=== PATIENT | female | born 1950 | race Caucasian/White ===

== ENCOUNTER 2016-02-25 23:19 | Inpatient (IN) | payer OTHER ==
[~2016-02-25] VITALS: Ht 175.3 cm; Wt 91.3 kg
[2016-02-26] VITALS (7 sets, daily range): BP systolic 96–123; BP diastolic 62–88
--- NOTE | 2016-02-26 02:26 | ED CLINICAL REPORT ---
Clinical Report - Physicians/Mid Levels [facility] [address] [place] [address] 02/25/2016 23:20 Patient: JESSICA CRAVEN Time Seen: 23:38. Arrived- By ambulance. Historian- patient and EMS personnel. HISTORY OF PRESENT ILLNESS Chief Complaint: med reaction. This started just prior to arrival and is now gone. (patient reports that she is not sure exactly why her called for an ambulance. She says that at times she has events where she becomes confused and disoriented. She is not sure if she had one of these events earlier or not. She says that she has a history of seizures but does not believe that she had one this evening. She has been on a fentanyl patch for many years. She does say that she has "felt poorly" for the past several days. She says that since yesterday she has had upper abdominal pain that radiates into the middle of her back.). REVIEW OF SYSTEMS No chills, fever, sweats, calf pain or chest pain. No cough, difficulty breathing, pedal edema, palpitations or black stools. No bloody stools, diarrhea, vomiting or urinary problems. The patient has had severe abdominal pain. The pain is described as located in the upper abdomen and radiating to the back and nausea. She has had constipation (chronically). All systems otherwise negative, except as recorded above. PAST HISTORY PCP - Ele. Problems: Chest Pain. Bipolar Disorder. Anxiety Reaction. Seizure. Hypothyroidism. Hypertension. Contusion. Alcoholism. Alcohol Intoxication. Narcotic Dependence. Suicidal Ideation. Mental Illness. Depression. UTI - Urinary Tract Infection. Cellulitis. Scoliosis. Seizure Disorder. Back Pain. Hematuria. Hyponatremia. Abdominal Pain. Hyperlipidemia. Atypical Chest Pain. Changed Mental Status. Drug Poisoning. Chronic Back Pain. Headache. Migraine Headache. Lifestyle / Substance Problems. Fibromyalgia. Additional Surgeries: Rt knee. Medications: Triamcinolone Acetonide External (Cream 0.1 %), 2x a day as needed. Venlafaxine HCl ER Oral (Tablet Extended Release 24 Hour 75 mg) 1 tablet, TID. Verapamil HCl Oral (Tablet Extended Release 240 mg), daily. Vitamin D3 Oral (Tablet 5000 unit) 1 tablet, daily. Zofran Oral (RX 02/27/13). FentaNYL Transdermal 75 mcg/hr, every 72 hours. Furosemide Oral (Tablet 20 mg) 1 tablet, daily. Imitrex Oral 50 mg, PRN. LevETIRAcetam Oral (Tablet 1000 mg) 1-1/2 tablets, daily (and at hs take 1 tablet ). Levothyroxine Sodium Oral 150 mcg, daily. LORazepam Oral (Tablet 1 mg) 1 tablet, 3x a day as needed. Nitroglycerin Translingual (Solution 0.4 mg/spray), PRN. Omeprazole Oral 20 mg, daily. Pravastatin Sodium Oral 20 mg, daily. Promethazine HCl Oral 25 mg, 2x a day as needed. SEROquel Oral (Tablet 100 mg) 1 tablet, 3x a day. Stool Softener Oral. Allergies: No Known Drug Allergy. SOCIAL HISTORY Current every day light tobacco smoker (cigarette)- less than 1/2 a pack per day. Alcohol use. (she says that she has been a very heavy drinker up until about 2 months ago. She was drinking large amounts every day. Since then she has tried not to drink however does report that 2 days ago she had a beer.). Residence: [place] she lives with spouse. FAMILY HISTORY Denies family medical history. ADDITIONAL NOTES The nursing notes have been reviewed. PHYSICAL EXAM Vital Signs: 02/25/2016 23:29 BP: 110/91. HR: 110. RR: 16. O2 saturation: 95%. Temp: 99.3 F. Pain level now: 07/25. Have been reviewed. Appearance: Alert. No acute distress. Eyes: Pupils equal, round and reactive to light. ENT: Pharynx normal. Neck: Normal inspection. Neck supple. CVS: Normal heart rate and rhythm. Heart sounds normal. Respiratory: No respiratory distress. Decreased air movement. Abdomen: No visible injury. Soft and nontender. Bowel sounds normal. No organomegaly. No mass. Back: Normal inspection. Skin: Skin warm and dry. Normal skin color. No rash. Normal skin turgor. Extremities: Extremities exhibit normal ROM. No calf tenderness. No lower extremity edema. LABS, X-RAYS, AND EKG EKG: Rate: 99. LVH. Non-specific ST segment / T wave abnormalities. Prolonged QT (412 ms). EKG unchanged when compared with prior EKG. (no significant changes from September 30, 2015). Chest X-ray: No acute disease. The X-rays were independently viewed by me. Abdominal CT: findings consistent with acute pancreatitis. Cannot evaluate for pancreas necrosis or vascular complication unenhanced and enhanced exam no loculated fluid collection at this time. Fluid tracking along the right greater than left perirenal fascia. Mild fluid in the right pericolic gutter and mild to moderate free fluid in the pelvis mildly prominent distended gallbladder. Borderline common duct no obvious filling defect. fatty liver. Upper limits of normal heart size. coronary artery calcifications and a fibroid uterus. Degenerative spine changes. The study was interpreted by the radiologist and contemporaneously by me. Laboratory Tests: UA-Culture if indicated: (ASIYA: 02/26/2016 00:28) ( MsgRcvd 02/26/2016 00:51) Final results Test Result Flag Units (Reference) URINE COLOR YELLOW URINE APPEARANCE CLEAR URINE GLUCOSE NEGATIVE (NEGATIVE) URINE BILIRUBIN NEGATIVE (NEGATIVE) URINE KETONE NEGATIVE (NEGATIVE) URINE SPECIFIC GRAVITY 1.015 (1.010-1.030) URINE PH 8.0 (5.0-8.0) URINE PROTEIN 1+ (NEGATIVE) URINE UROBILINOGEN 0.2 EU/dL (0.2-1.0) URINE NITRITE NEGATIVE (NEGATIVE) URINE BLOOD NEGATIVE (NEGATIVE) URINE LEUK ESTERASE NEGATIVE (NEGATIVE) URINE RBC 0-1 rbc/hpf (0-1) URINE WBC 0-1 wbc/hpf (0-1) URINE EPITHELIAL CELLS 0-1 EPI/hpf (0-5) URINE BACTERIA NONE SEEN (NONE SEEN) URINE COMMENT CULT NOT INDICATED URINE CULTURES ARE SET-UP BASED ON THE FOLLOWING CRITERIA:POSITIVE NITRITEPOSITIVE LEUKOCYTE ESTERASEGREATER THAN 10 WHITE BLOOD CELLSMODERATE (2+) OR GREATER BACTERIA CBC w Diff: (ASIYA: 02/26/2016 00:28) ( MsgRcvd 02/26/2016 00:45) Final results Test Result Flag Units (Reference) WHITE BLOOD COUNT 10.4 K/uL (4.5-11.5) RED BLOOD COUNT 4.46 M/uL (4.00-5.20) HEMOGLOBIN 13.7 gm/dL (12.0-16.0) HEMATOCRIT 41.5 % (36.0-46.0) MEAN CELL VOLUME 93 fL (80-100) MEAN CORPUSCULAR HGB 31 pg (26-34) MEAN CORPUSCULAR HGB CONC 33 g/dL (31-37) RED CELL DISTRIBUTION WIDTH 14.8 % (11.6-14.8) PLATELET COUNT 212 K/uL (150-400) NEUTROPHIL % 80.3 H % (50-75) LYMPH % 12.9 L % (25-40) MONO % 5.9 % (3-14) EOSINOPHIL % 0.4 % (0-4) BASOPHIL % 0.5 % (0-2) Ethyl Alcohol: (ASIYA: 02/26/2016 00:28) ( KsgRcvd 02/26/2016 01:40) Final results Test Result Flag Units (Reference) ETHYL ALCOHOL <3 L mg/dL (3-10) Urine Drug Screen: (ASIYA: 02/26/2016 00:28) ( KsgRcvd 02/26/2016 00:58) Final results Test Result Flag Units (Reference) AMPHETAMINE/METHAMPHETAMINE NEGATIVE (NEGATIVE) BARBITURATE NEGATIVE (NEGATIVE) BENZODIAZEPINE NEGATIVE (NEGATIVE) CANNABINOID POSITIVE H (NEGATIVE) COCAINE NEGATIVE (NEGATIVE) ECSTASY NEGATIVE (NEGATIVE) METHADONE NEGATIVE (NEGATIVE) OPIATE POSITIVE H (NEGATIVE) The urine drug screen is a qualitative screening test fordrug overdose and abuse. All screen results should beconsidered as presumptive.Drugs screened for are as follows:BenzodiazepinesCocaineAmphetamines/MetamphetaminesTHC (Tetrahydrocannabinol)OpiatesBarbituratesEcstasyMethadonePositive results are unconfirmed. For confirmation, notifythe lab for the specimen to be sent to the reference lab.All confirmations must be performed by a differentmethodology.The ingestion of natural herbal and plant productscontaining Ephedra/Ephedra metabolites can produce in urineone or more substances capable of cross reacting withamphetamine/methamphetamine immunoassays. These testsprovide a preliminary result only. A more specificalternative chemical method must be used to obtain aconfirmed analytical result. CMP: (ASIYA: 02/26/2016 00:28) ( MsgRcvd 02/26/2016 00:58) Final results Test Result Flag Units (Reference) GLUCOSE 133 H mg/dL (70-110) BUN 19 H mg/dL (7-18) CREATININE 1.9 H mg/dL (0.6-1.3) Estimated GFR 28.38 mL/min Estimated GFR- 34.39 mL/min Note: Persistent reduction over 3 months in eGFR<60 mL/min/1.73 m2 defines CKD. Patients with eGFR values>=60 mL/min/1.73 m2 may also have CKD if evidence ofpersistent proteinuria. Additional information may be foundat www.kidney.org. SODIUM 133 L mmol/L (136-145) POTASSIUM 3.6 mmol/L (3.5-5.1) CHLORIDE 96 L mmol/L (98-107) CARBON DIOXIDE 27 mmol/L (21-32) CALCIUM 7.3 L mg/dL (8.5-10.1) TOTAL PROTEIN 7.2 g/dL (6.4-8.2) ALBUMIN 3.6 g/dL (3.3-5.0) BILIRUBIN, TOTAL 0.5 mg/dL (0.0-1.0) ALKALINE PHOSPHATASE 110 U/L (46-116) AST (SGOT) 36 U/L (15-37) ALT (SGPT) 37 U/L (12-78) LIPASE 2918 H U/L (73-393) AMYLASE 478 H U/L (25-115) CPK: (ASIYA: 02/26/2016 00:28) ( MsgRcvd 02/26/2016 01:02) Final results Test Result Flag Units (Reference) CPK 108 U/L (24-260) TROPONIN I <0.05 ng/mL (0.00-1.5) TROPONIN REFERENCE RANGE:<0.1 NEGATIVE0.1-1.5 INDETERMINANT>1.5 POSITIVE . PROGRESS AND PROCEDURES Course of Care: Patient is stable. Discussed case with on-call health care provider, (Grant). Reviewed test results and need for additional work-up. Agreed upon treatment plan, need for patient follow-up and decision to admit. Health care provider will see patient in hospital. Patient/family counseled. Old medical records reviewed. Disposition orders written (in [employer]). Disposition: Admitted. CLINICAL IMPRESSION Pancreatitis. Renal insufficiency. (Electronically signed by Fermin Zaman MD 02/26/2016 8:16)
--- NOTE | 2016-02-26 02:26 | ED NURSING NOTES ---
Clinical Report - Nurses [facility] [address] [place] [address] 02/25/2016 23:20 Patient: JESSICA CRAVEN TRIAGE Triage time 2329. Acuity: LEVEL 3. Alert. NIC COMA SCORE: [place] Coma Scale: 15- eyes open spontaneously (4); best verbal response- oriented x 4 (5); best motor response- obeys commands (6). --23:38 Manda Kramer R.N. 23:29 02/25/16. BP: 110/91. HR: 110. RR: 16. O2 saturation: 95% on room air. Temp: 99.3 F (oral). Pain level now: 07/25. Additional comments: chronic low back pain. --23:38 Manda Kramer R.N. Chief Complaint: DRUG OVERDOSE. 23:29. --04:01 Manda Kramer R.N. Weight: 91.6 kg stated. Height/Length: 67 inches Per Patient. BMI: 31.7. --23:28 Manda Kramer R.N. Medications FentaNYL Transdermal 75 mcg/hr, every 72 hours. Furosemide Oral (Tablet 20 mg) 1 tablet, daily. Imitrex Oral 50 mg, PRN. LevETIRAcetam Oral (Tablet 1000 mg) 1-1/2 tablets, daily (and at hs take 1 tablet ). Levothyroxine Sodium Oral 150 mcg, daily. LORazepam Oral (Tablet 1 mg) 1 tablet, 3x a day as needed. Nitroglycerin Translingual (Solution 0.4 mg/spray), PRN. Omeprazole Oral 20 mg, daily. Pravastatin Sodium Oral 20 mg, daily. Promethazine HCl Oral 25 mg, 2x a day as needed. SEROquel Oral (Tablet 100 mg) 1 tablet, 3x a day. Stool Softener Oral. --23:36 Manda Kramer R.N. Triamcinolone Acetonide External (Cream 0.1 %), 2x a day as needed. Venlafaxine HCl ER Oral (Tablet Extended Release 24 Hour 75 mg) 1 tablet, TID. Verapamil HCl Oral (Tablet Extended Release 240 mg), daily. Vitamin D3 Oral (Tablet 5000 unit) 1 tablet, daily. Zofran Oral (RX 02/27/13). --23:36 Manda Kramer R.N. Allergies No Known Drug Allergy. --23:36 Manda Kramer R.N. Medication/allergy information source: the patient. --23:38 Manda Kramer R.N. History Arrived by EMS. Historian: EMS. Unaccompanied. Primary physician (Ele). ( pt's spouse found her out of it tonight, placed new Fentanyl patch in the morning. pt states sometimes patches feel stronger than other.). This occurred just prior to arrival. Treatment FLITCH HANGER: IV fluid given (NS 300 mL bolus). ABUSE ASSESSMENT: No report of abuse. FALL RISK ASSESSMENT: Fall risk assessment completed. No fall risk identified. NUTRITIONAL RISK ASSESSMENT: The nutritional risk assessment revealed no deficiencies. FUNCTIONAL ASSESSMENT: Functional assessment: no impairments noted. LEARNING NEEDS ASSESSMENT: The learning needs assessment revealed no barriers. SKIN INTEGRITY ASSESSMENT: Skin integrity risk assessment completed. No skin integrity risk identified. --23:38 Manda Kramer R.N. PROBLEMS: Chest Pain. Bipolar Disorder. Anxiety Reaction. Hypothyroidism. Hypertension. Alcoholism. Narcotic Dependence. Suicidal Ideation. Mental Illness. Depression. Cellulitis. Scoliosis. Seizure Disorder. Back Pain. Hyperlipidemia. Atypical Chest Pain. Changed Mental Status. Headache. Migraine Headache. Fibromyalgia. --23:37 Manda Kramer R.N. ADDITIONAL SURGERIES: Rt knee. --23:37 Manda Kramer R.N. Interventions ID band on patient. To treatment room. --23:38 Manda Kramer R.N. 23:37 02/25/2016 Site #1 started via IV in the right antecubital space with an 18g angiocath (placed FLITCH HANGER). --23:37 Manda Kramer R.N. PHYSICAL ASSESSMENT late entry -00:00. To room via stretcher. GENERAL / NEURO / PSYCH: Alert. Oriented X 4. Appears in no acute distress. Patient appears calm and cooperative. Gag reflex present. Speech within normal limits. RESPIRATORY: Respirations not labored. CVS: Normal sinus rhythm noted. Capillary refill less than 2 seconds. GI / : Abdominal tenderness in the upper abdomen. Bowel sounds within normal limits. SKIN: Skin intact. Skin is warm and dry. Skin color is within normal limits. Affect appears within normal limits. --02:51 Manda Kramer R.N. correction to prior entry -assessment 01:00. --03:24 Manda Kramer R.N. NURSING PROGRESS NOTES family nurse practitioner, pulse oximeter and NIBP monitor placed on patient. Patient gowned. Two patient identifiers checked. Call light placed in reach. Side rails up x 2. Bed placed in lowest position. Brakes of bed on. Patient ready for evaluation. --23:39 Manda Kramer R.N. 00:17 02/26/16. BP: 104/76. HR: 100. RR: 14. O2 saturation: 94% on room air. --00:18 Manda Kramer R.N. pt used BSC, had BM. pt states she's unable to give urine specimen. --00:18 Manda Kramer R.N. <<STRICKEN ENTRY-- 00:05 02/26/2016 Started bag #1 1000 mL IV Fluids IV NS (Saline); at 999 mL/hr over 1 hour(s) via site #1 via IV pump. Allergies verified and confirmed 5 rights. IV patency established. IV site checked: no pain, redness, or swelling. IV flushed thoroughly pre- and post-medication administration. --00:19 Manda Kramer R.N. --END STRIKE>> Correction. --00:28 Manda Kramer R.N. 00:05 02/26/2016 Started bag #1 1000 IV Fluids IV NS (Saline); at 999 mL/hr over 30 minute(s) via site #1 via IV pump. Allergies verified and confirmed 5 rights. IV patency established. IV site checked: no pain, redness, or swelling. IV flushed thoroughly pre- and post-medication administration. --00:28 Manda Kramer R.N. 8 fr in/out catheterization. During procedure hand hygiene observed and sterile equipment and aseptic technique used. Return of yellow-colored clear urine. She tolerated procedure well (pt unable to give urine specimen. labeled in front of pt and sent to lab.). --00:37 Manda Kramer R.N. x-ray tech in room for portable chest x-ray. --00:38 Manda Kramer R.N. EKG time: (1250). EKG was ordered, performed by a tech and shown to the ED physician. --00:55 Magnus Valerie 00:50 02/26/2016 IV Fluids IV NS Discontinued: bag #1 infused. Total amount infused: 1000 ml mL. IV patency established. IV site checked: no pain, redness, or swelling. IV flushed thoroughly. (300 given FLITCH HANGER by EMS, gave pt 700 ml, MD aware of change.). --01:12 Manda Kramer R.N. 01:15 02/26/2016 Started bag #1 1000 mL IV Fluids IV NS (Saline); at 999 mL/hr over 1 hour(s) via site #1 via IV pump. Allergies verified and confirmed 5 rights. IV patency established. IV site checked: no pain, redness, or swelling. IV flushed thoroughly pre- and post-medication administration. --01:19 Manda Kramer R.N. Patient transported to CT by stretcher with tech. --01:19 Manda Kramer R.N. 01:00 02/26/16. BP: 108/81. HR: 100. RR: 16. O2 saturation: 96% on room air. --01:30 Manda Kramer R.N. Patient returned from CT by stretcher with tech. --01:30 Manda Kramer R.N. 02:35 02/26/16. BP: 149/100. HR: 95. RR: 18. O2 saturation: 96% on room air. Pain level now: 07/25. --02:35 Manda Kramer R.N. assisted pt back to room from bathroom. --02:35 Manda Kramer R.N. 03:23 02/26/2016 IV Fluids IV NS Bag Change: bag #2 infused. Total amount infused: 1000. STARTED bag #3 at 200 mL/hr via IV pump. IV patency established. IV site checked: no pain, redness, or swelling. IV flushed thoroughly. --03:26 Albin Patterson R.N. 03:24 02/26/2016 Zofran (Ondansetron HCl) IVP 4 mg given over 1 minute(s) via site #1. Allergies verified and confirmed 5 rights. IV patency established. IV site checked: no pain, redness, or swelling. IV flushed thoroughly pre- and post-medication administration. IVP given by RN. --03:33 Manda Kramer R.N. 03:32 02/26/2016 IV Fluids IV NS Continued: upon admission at the rate of 200 mL/hr. 960 ml mL remaining bag #3. IV patency established. IV site checked: no pain, redness, or swelling. IV flushed thoroughly. --03:32 Manda Kramer R.N. DISPOSITION / DISCHARGE Departure time: 323. Admitted to Acute Care (202). Transported via stretcher by [employer]. Report was given to a nurse via a phone call. Report included patient's care, treatment, medications, reviewed medication reconcilliation, and condition (including any recent changes or anticipated changes). All questions were answered. Report was acknowledged and care was transferred. (TELMA Grant). --03:31 Manda Kramer R.N. 03:24 02/26/16. BP: 119/82. HR: 97. RR: 18. O2 saturation: 94% on room air. Temp: 99 F. Pain level now: 07/25. --03:31 Manda Kramer R.N. Locked/Released at 02/26/2016 4:01 by Manda Kramer R.N.
--- NOTE | 2016-02-26 02:26 | ED ORDER SUMMARY ---
..... Patient: JESSICA CRAVEN OrderSheet [facility] VisitID: [id number] [place] [address] 65y, F Registration Date/Time: 02/25/2016 ORDER SHEET Weight: 91.6 kg (stated) Allergies: No Known Drug Allergy GENERAL ORDERS: CBC w Diff Urgent (23:42 02/25/2016 Eleni SCHAEFER) (Ack 0:23 CHagerty ER Aluminum Sheet Cutter) (1:13 CHategekimana) CMP Urgent (23:42 02/25/2016 Eleni SCHAEFER) (Ack 0:23 CHagerty ER Aluminum Sheet Cutter) (1:13 CHategekimana) UA-Culture if indicated Urgent (23:42 02/25/2016 Eleni SCHAEFER) (Ack 0:23 CHagdaren ER Aluminum Sheet Cutter) (1:13 CHategekimana) Amylase Urgent (23:42 02/25/2016 Eleni SCHAEFER) (Ack 0:23 CHagerty ER Aluminum Sheet Cutter) (1:13 CHategekimana) Lipase Urgent (23:42 02/25/2016 Eleni SCHAEFER) (Ack 0:23 CHagerty ER Aluminum Sheet Cutter) (1:13 CHategekimana) Urine Drug Screen Urgent (23:42 02/25/2016 Eleni SCHAEFER) (Ack 0:23 CHagerty ER Aluminum Sheet Cutter) (1:13 CHategekimana) Chest 1V Urgent (00:24 02/26/2016 Eleni SCHAEFER) (Ack 0:26 CHagdaren ER Aluminum Sheet Cutter) (0:41 Rena) CPK Urgent (00:24 02/26/2016 Eleni SCHAEFER) (Ack 0:26 CHagdaren ER Aluminum Sheet Cutter) (1:20 HKone R.N.) Troponin-I Urgent (00:24 02/26/2016 Eleni SCHAEFER) (Ack 0:26 CHagdaren ER Aluminum Sheet Cutter) (1:20 HKone R.N.) EKG - ER Stat (00:24 02/26/2016 Eleni SCHAEFER) (Ack 0:26 CHagerty ER Aluminum Sheet Cutter) (1:12 CHagerty ER Aluminum Sheet Cutter) CT Abd/Pel wo Cont Urgent (01:04 02/26/2016 Eleni SCHAEFER) (Ack 1:08 CHagerty ER Aluminum Sheet Cutter) (1:20 HKone R.N.) NPO (01:08 02/26/2016 Eleni SCHAEFER) (1:20 HKone R.N.) Ethyl Alcohol Urgent (01:29 02/26/2016 Eleni SCHAEFER) (1:31 CHagerty ER Aluminum Sheet Cutter) MEDICATION ORDERS: IV FLUIDS: IV NS : initial bolus 500 mL (1000 mL/hr), then 125 mL/hr for 4h (NOW); Urgent (23:41 02/25/2016 Eleni SCHAEFER) (Ack 23:49 HKone R.N.) (0:19 HKone R.N.) (Cancelled: Other1:08 Eleni SCHAEFER) IV Saline Lock (23:42 02/25/2016 Eleni SCHAEFER) (23:49 HKone R.N.) IV NS : initial bolus 1000 mL (1000 mL/hr), then 200 mL/hr for 4h (NOW); Urgent (:02/26/2016 Eleni SCHAEFER) (Ack 1:12 HKone R.N.) (1:19 HKone R.N.) Zofran IV 4 mg (NOW) (03:33 02/26/2016 HKone R.N. verbal order read back to Eleni SCHAEFER) (3:33 HKone R.N.) ORDER SHEET NOTES: [Electronically signed by Manda Kramer R.N. (04:01 02/26/2016)] [Electronically signed by Fermin Zaman MD (08:16 02/26/2016)] [Electronically locked/signed by Manda Kramer R.N. (04:02/26/2016)]
--- NOTE | 2016-02-26 02:26 | ED ORDER SUMMARY ---
..... Patient: JESSICA CRAVEN OrderSheet [facility] VisitID: [id number] [place] [address] 65y, F Registration Date/Time: 02/25/2016 ORDER SHEET Weight: 91.6 kg (stated) Allergies: No Known Drug Allergy GENERAL ORDERS: CBC w Diff Urgent (23:42 02/25/2016 Eleni SCHAEFER) (Ack 0:23 CHagerty ER Adding Machine Mechanic) (1:13 CHategekimana) CMP Urgent (23:42 02/25/2016 Eleni SCHAEFER) (Ack 0:23 CHagerty ER Adding Machine Mechanic) (1:13 CHategekimana) UA-Culture if indicated Urgent (23:42 02/25/2016 Eleni SCHAEFER) (Ack 0:23 CHagdaren ER Adding Machine Mechanic) (1:13 CHategekimana) Amylase Urgent (23:42 02/25/2016 Eleni SCHAEFER) (Ack 0:23 CHagerty ER Adding Machine Mechanic) (1:13 CHategekimana) Lipase Urgent (23:42 02/25/2016 Eleni SCHAEFER) (Ack 0:23 CHagerty ER Adding Machine Mechanic) (1:13 CHategekimana) Urine Drug Screen Urgent (23:42 02/25/2016 Eleni SCHAEFER) (Ack 0:23 CHagerty ER Adding Machine Mechanic) (1:13 CHategekimana) Chest 1V Urgent (00:24 02/26/2016 Eleni SCHAEFER) (Ack 0:26 CHagdaren ER Adding Machine Mechanic) (0:41 Rena) CPK Urgent (00:24 02/26/2016 Eleni SCHAEFER) (Ack 0:26 CHagdaren ER Adding Machine Mechanic) (1:20 HKone R.N.) Troponin-I Urgent (00:24 02/26/2016 Eleni SCHAEFER) (Ack 0:26 CHagdaren ER Adding Machine Mechanic) (1:20 HKone R.N.) EKG - ER Stat (00:24 02/26/2016 Eleni SCHAEFER) (Ack 0:26 CHagerty ER Adding Machine Mechanic) (1:12 CHagerty ER Adding Machine Mechanic) CT Abd/Pel wo Cont Urgent (01:04 02/26/2016 Eleni SCHAEFER) (Ack 1:08 CHagerty ER Adding Machine Mechanic) (1:20 HKone R.N.) NPO (01:08 02/26/2016 Eleni SCHAEFER) (1:20 HKone R.N.) Ethyl Alcohol Urgent (01:29 02/26/2016 Eleni SCHAEFER) (1:31 CHagerty ER Adding Machine Mechanic) MEDICATION ORDERS: IV FLUIDS: IV NS : initial bolus 500 mL (1000 mL/hr), then 125 mL/hr for 4h (NOW); Urgent (23:41 02/25/2016 Eleni SCHAEFER) (Ack 23:49 HKone R.N.) (0:19 HKone R.N.) (Cancelled: Other1:08 Eleni SCHAEFER) IV Saline Lock (23:42 02/25/2016 Eleni SCHAEFER) (23:49 HKone R.N.) IV NS : initial bolus 1000 mL (1000 mL/hr), then 200 mL/hr for 4h (NOW); Urgent (:02/26/2016 Eleni SCHAEFER) (Ack 1:12 HKone R.N.) (1:19 HKone R.N.) Zofran IV 4 mg (NOW) (03:33 02/26/2016 HKone R.N. verbal order read back to Eleni SCHAEFER) (3:33 HKone R.N.) ORDER SHEET NOTES: [Electronically signed by Manda Kramer R.N. (04:01 02/26/2016)] [Electronically signed by Fermin Zaman MD (08:16 02/26/2016)] [Electronically locked/signed by Manda Kramer R.N. (04:02/26/2016)]
--- NOTE | 2016-02-26 02:26 | ED NURSING NOTES ---
Clinical Report - Nurses [facility] [address] [place] [address] 02/25/2016 23:20 Patient: JESSICA CRAVEN TRIAGE Triage time 2329. Acuity: LEVEL 3. Alert. NIC COMA SCORE: [place] Coma Scale: 15- eyes open spontaneously (4); best verbal response- oriented x 4 (5); best motor response- obeys commands (6). --23:38 Manda Kramer R.N. 23:29 02/25/16. BP: 110/91. HR: 110. RR: 16. O2 saturation: 95% on room air. Temp: 99.3 F (oral). Pain level now: 07/25. Additional comments: chronic low back pain. --23:38 Manda Kramer R.N. Chief Complaint: DRUG OVERDOSE. 23:29. --04:01 Manda Kramer R.N. Weight: 91.6 kg stated. Height/Length: 67 inches Per Patient. BMI: 31.7. --23:28 Manda Kramer R.N. Medications FentaNYL Transdermal 75 mcg/hr, every 72 hours. Furosemide Oral (Tablet 20 mg) 1 tablet, daily. Imitrex Oral 50 mg, PRN. LevETIRAcetam Oral (Tablet 1000 mg) 1-1/2 tablets, daily (and at hs take 1 tablet ). Levothyroxine Sodium Oral 150 mcg, daily. LORazepam Oral (Tablet 1 mg) 1 tablet, 3x a day as needed. Nitroglycerin Translingual (Solution 0.4 mg/spray), PRN. Omeprazole Oral 20 mg, daily. Pravastatin Sodium Oral 20 mg, daily. Promethazine HCl Oral 25 mg, 2x a day as needed. SEROquel Oral (Tablet 100 mg) 1 tablet, 3x a day. Stool Softener Oral. --23:36 Manda Kramer R.N. Triamcinolone Acetonide External (Cream 0.1 %), 2x a day as needed. Venlafaxine HCl ER Oral (Tablet Extended Release 24 Hour 75 mg) 1 tablet, TID. Verapamil HCl Oral (Tablet Extended Release 240 mg), daily. Vitamin D3 Oral (Tablet 5000 unit) 1 tablet, daily. Zofran Oral (RX 02/27/13). --23:36 Manda Kramer R.N. Allergies No Known Drug Allergy. --23:36 Manda Kramer R.N. Medication/allergy information source: the patient. --23:38 Manda Kramer R.N. History Arrived by EMS. Historian: EMS. Unaccompanied. Primary physician (Ele). ( pt's spouse found her out of it tonight, placed new Fentanyl patch in the morning. pt states sometimes patches feel stronger than other.). This occurred just prior to arrival. Treatment BANK MESSENGER: IV fluid given (NS 300 mL bolus). ABUSE ASSESSMENT: No report of abuse. FALL RISK ASSESSMENT: Fall risk assessment completed. No fall risk identified. NUTRITIONAL RISK ASSESSMENT: The nutritional risk assessment revealed no deficiencies. FUNCTIONAL ASSESSMENT: Functional assessment: no impairments noted. LEARNING NEEDS ASSESSMENT: The learning needs assessment revealed no barriers. SKIN INTEGRITY ASSESSMENT: Skin integrity risk assessment completed. No skin integrity risk identified. --23:38 Manda Kramer R.N. PROBLEMS: Chest Pain. Bipolar Disorder. Anxiety Reaction. Hypothyroidism. Hypertension. Alcoholism. Narcotic Dependence. Suicidal Ideation. Mental Illness. Depression. Cellulitis. Scoliosis. Seizure Disorder. Back Pain. Hyperlipidemia. Atypical Chest Pain. Changed Mental Status. Headache. Migraine Headache. Fibromyalgia. --23:37 Manda Kramer R.N. ADDITIONAL SURGERIES: Rt knee. --23:37 Manda Kramer R.N. Interventions ID band on patient. To treatment room. --23:38 Manda Kramer R.N. 23:37 02/25/2016 Site #1 started via IV in the right antecubital space with an 18g angiocath (placed BANK MESSENGER). --23:37 Manda Kramer R.N. PHYSICAL ASSESSMENT late entry -00:00. To room via stretcher. GENERAL / NEURO / PSYCH: Alert. Oriented X 4. Appears in no acute distress. Patient appears calm and cooperative. Gag reflex present. Speech within normal limits. RESPIRATORY: Respirations not labored. CVS: Normal sinus rhythm noted. Capillary refill less than 2 seconds. GI / : Abdominal tenderness in the upper abdomen. Bowel sounds within normal limits. SKIN: Skin intact. Skin is warm and dry. Skin color is within normal limits. Affect appears within normal limits. --02:51 Manda Kramer R.N. correction to prior entry -assessment 01:00. --03:24 Manda Kramer R.N. NURSING PROGRESS NOTES engine monitor, pulse oximeter and NIBP monitor placed on patient. Patient gowned. Two patient identifiers checked. Call light placed in reach. Side rails up x 2. Bed placed in lowest position. Brakes of bed on. Patient ready for evaluation. --23:39 Manda Kramer R.N. 00:17 02/26/16. BP: 104/76. HR: 100. RR: 14. O2 saturation: 94% on room air. --00:18 Manda Kramer R.N. pt used BSC, had BM. pt states she's unable to give urine specimen. --00:18 Manda Kramer R.N. <<STRICKEN ENTRY-- 00:05 02/26/2016 Started bag #1 1000 mL IV Fluids IV NS (Saline); at 999 mL/hr over 1 hour(s) via site #1 via IV pump. Allergies verified and confirmed 5 rights. IV patency established. IV site checked: no pain, redness, or swelling. IV flushed thoroughly pre- and post-medication administration. --00:19 Manda Kramer R.N. --END STRIKE>> Correction. --00:28 Manda Kramer R.N. 00:05 02/26/2016 Started bag #1 1000 IV Fluids IV NS (Saline); at 999 mL/hr over 30 minute(s) via site #1 via IV pump. Allergies verified and confirmed 5 rights. IV patency established. IV site checked: no pain, redness, or swelling. IV flushed thoroughly pre- and post-medication administration. --00:28 Manda Kramer R.N. 8 fr in/out catheterization. During procedure hand hygiene observed and sterile equipment and aseptic technique used. Return of yellow-colored clear urine. She tolerated procedure well (pt unable to give urine specimen. labeled in front of pt and sent to lab.). --00:37 Manda Kramer R.N. x-ray tech in room for portable chest x-ray. --00:38 Manda Kramer R.N. EKG time: (1250). EKG was ordered, performed by a tech and shown to the ED physician. --00:55 Magnus Valerie 00:50 02/26/2016 IV Fluids IV NS Discontinued: bag #1 infused. Total amount infused: 1000 ml mL. IV patency established. IV site checked: no pain, redness, or swelling. IV flushed thoroughly. (300 given BANK MESSENGER by EMS, gave pt 700 ml, MD aware of change.). --01:12 Manda Kramer R.N. 01:15 02/26/2016 Started bag #1 1000 mL IV Fluids IV NS (Saline); at 999 mL/hr over 1 hour(s) via site #1 via IV pump. Allergies verified and confirmed 5 rights. IV patency established. IV site checked: no pain, redness, or swelling. IV flushed thoroughly pre- and post-medication administration. --01:19 Manda Kramer R.N. Patient transported to CT by stretcher with tech. --01:19 Manda Kramer R.N. 01:00 02/26/16. BP: 108/81. HR: 100. RR: 16. O2 saturation: 96% on room air. --01:30 Manda Kramer R.N. Patient returned from CT by stretcher with tech. --01:30 Manda Kramer R.N. 02:35 02/26/16. BP: 149/100. HR: 95. RR: 18. O2 saturation: 96% on room air. Pain level now: 07/25. --02:35 Manda Kramer R.N. assisted pt back to room from bathroom. --02:35 Manda Kramer R.N. 03:23 02/26/2016 IV Fluids IV NS Bag Change: bag #2 infused. Total amount infused: 1000. STARTED bag #3 at 200 mL/hr via IV pump. IV patency established. IV site checked: no pain, redness, or swelling. IV flushed thoroughly. --03:26 Albin Patterson R.N. 03:24 02/26/2016 Zofran (Ondansetron HCl) IVP 4 mg given over 1 minute(s) via site #1. Allergies verified and confirmed 5 rights. IV patency established. IV site checked: no pain, redness, or swelling. IV flushed thoroughly pre- and post-medication administration. IVP given by RN. --03:33 Manda Kramer R.N. 03:32 02/26/2016 IV Fluids IV NS Continued: upon admission at the rate of 200 mL/hr. 960 ml mL remaining bag #3. IV patency established. IV site checked: no pain, redness, or swelling. IV flushed thoroughly. --03:32 Manda Kramer R.N. DISPOSITION / DISCHARGE Departure time: 323. Admitted to Acute Care (202). Transported via stretcher by [employer]. Report was given to a nurse via a phone call. Report included patient's care, treatment, medications, reviewed medication reconcilliation, and condition (including any recent changes or anticipated changes). All questions were answered. Report was acknowledged and care was transferred. (TELMA Grant). --03:31 Manda Kramer R.N. 03:24 02/26/16. BP: 119/82. HR: 97. RR: 18. O2 saturation: 94% on room air. Temp: 99 F. Pain level now: 07/25. --03:31 Manda Kramer R.N. Locked/Released at 02/26/2016 4:01 by Manda Kramer R.N.
--- NOTE | 2016-02-26 07:16 | DIAGNOSTIC IMAGING REPORT ---
PROCEDURE: CT ABDOMEN/PELVIS W/O CONTRAST INDICATION: Upper abdominal pain with elevated amylase and lipase, initial encounter TECHNIQUE: Noncontrast axial images were obtained of the entire abdomen and pelvis with sagittal and coronal reformations. COMPARISON: CT abdomen/pelvis 04/26/2013 FINDINGS: ABDOMEN: Mild inflammatory changes around the enlarged ill-defined pancreas with a small amount of fluid in the anterior pararenal spaces. No evidence of a pseudocyst. Hepatic steatosis. Distended gallbladder. Spleen , left adrenal gland and kidneys are normal. 1 cm right adrenal nodule. Moderate atherosclerosis of the aorta. Nonspecific bowel gas pattern. Lung base are clear. Heart size is normal. Coronary atherosclerosis. PELVIS: Normal appendix. Calcified fibroid. Normal adnexa. Mild free fluid the pelvis. Moderate dextroscoliosis of the lumbar spine with severe degenerative changes. IMPRESSION: 1. Acute pancreatitis with mild fluid in the anterior pararenal spaces and pelvis. 2. Distended gallbladder 3. Hepatic steatosis 4. Uterine fibroids 5. Preliminary results were by Dr. Wang, [facility] radiology All CT scans at this facility use dose modulation, iterative reconstruction, and/or weight-based dosing when appropriate to reduce radiation dose to as low as reasonably achievable.
--- NOTE | 2016-02-26 07:32 | Progress Note ---
Subjective General c/o abd pain and bloating w/ radiation to back x3 days. Came to er yesterday and admitted with acute pancreatitis w/ ARF. Physical Exam Vital Signs / I&Os Vital Signs Date Time Temp Pulse Resp B/P Pulse O2 O2 Flow FiO2 Ox Delivery Rate 02/25 0642 98.2 89 20 114/79 93 Room Air 0.0 02/25 0348 98.8 96 18 112/83 93 Room Air LAB Results Laboratory Tests 02/25 02/25 02/25 0028 0028 0028 Chemistry Plasma Sodium (136 - 145 mmol/L) 133 Plasma Potassium (3.5 - 5.1 mmol/L) 3.6 Plasma Chloride (98 - 107 mmol/L) 96 CO2 (Enzymatic) (21 - 32 mmol/L) 27 BUN (7 - 18 mg/dL) 19 Creatinine (0.6 - 1.3 mg/dL) 1.9 Est GFR ( Amer) (mL/min) 34.39 Est GFR (Non-Af Amer) (mL/min) 28.38 Glucose (70 - 110 mg/dL) 133 Plasma Calcium (8.5 - 10.1 mg/dL) 7.3 Phosphorus (2.5 - 4.9 mg/dL) 4.1 Plasma Magnesium (1.8 - 2.4 mg/dL) 2.2 Total Bilirubin (0.0 - 1.0 mg/dL) 0.5 AST (15 - 37 U/L) 36 ALT (12 - 78 U/L) 37 Alkaline Phosphatase (46 - 116 U/L) 110 Creatine Kinase (24 - 260 U/L) 108 Troponin (0.00 - 1.5 ng/mL) <0.05 Total Protein (6.4 - 8.2 g/dL) 7.2 Albumin (3.3 - 5.0 g/dL) 3.6 Amylase (25 - 115 U/L) 478 Lipase (73 - 393 U/L) 2918 Hematology WBC (4.5 - 11.5 K/uL) 10.4 RBC (4.00 - 5.20 M/uL) 4.46 Hgb (12.0 - 16.0 gm/dL) 13.7 Hct (36.0 - 46.0 %) 41.5 MCV (80 - 100 fL) 93 MCH (26 - 34 pg) 31 RDW (11.6 - 14.8 %) 14.8 Neut % (Auto) (50 - 75 %) 80.3 Lymph % (Auto) (25 - 40 %) 12.9 [place] % (Auto) (3 - 14 %) 5.9 Eos % (Auto) (0 - 4 %) 0.4 Baso % (Auto) (0 - 2 %) 0.5 Plt Count, EDTA (150 - 400 K/uL) 212 PUBS MCHC (31 - 37 g/dL) 33 Toxicology Urine Opiates Screen (NEGATIVE) POSITIVE Urine Methadone Screen (NEGATIVE) NEGATIVE Ur Barbiturates Screen (NEGATIVE) NEGATIVE U Amphetamin/Meth Scrn (NEGATIVE) NEGATIVE MDMA (Ecstasy) Screen (NEGATIVE) NEGATIVE U Benzodiazepines Scrn (NEGATIVE) NEGATIVE Urine Cocaine Screen (NEGATIVE) NEGATIVE U Cannabinoids Screen (NEGATIVE) POSITIVE Plasma/Serum Ethyl Alc (3 - 10 mg/dL) <3 Urines Urine Color YELLOW Urine Appearance CLEAR Urine pH (5.0 - 8.0) 8.0 Ur Specific [place] (1.010 - 1.030) 1.015 Urine Protein (NEGATIVE) 1+ Urine Ketones (NEGATIVE) NEGATIVE Urine Blood (NEGATIVE) NEGATIVE Urine Nitrite (NEGATIVE) NEGATIVE Urine Bilirubin (NEGATIVE) NEGATIVE Urine Urobilinogen (0.2 - 1.0 EU/dL) 0.2 Ur Leukocyte Esterase (NEGATIVE) NEGATIVE Urine RBC (0 - 1 rbc/hpf) 0-1 Urine WBC (0 - 1 wbc/hpf) 0-1 Ur Epithelial Cells (0 - 5 EPI/hpf) 0-1 Urine Bacteria (NONE SEEN) NONE SEEN Urine Glucose (NEGATIVE) NEGATIVE Urine Comment CULT NOT INDICATED
--- NOTE | 2016-02-26 07:32 | DIAGNOSTIC IMAGING REPORT ---
PROCEDURE: XR CHEST 1 VIEW INDICATION: SHORTNESS OF BREATH, initial encounter TECHNIQUE: Portable AP view 12:32 a.m. COMPARISON: Chest x-ray 09/30/2015 FINDINGS: Poor inspiration. Lungs are clear. Heart and mediastinum are normal. Mild levoconvex scoliosis. No significant interval change. IMPRESSION: 1. Negative chest.
--- NOTE | 2016-02-26 08:16 | ED MED RECONCILIATION SUMMARY ---
Patient: JESSICA CRAVEN Medication Reconciliation Report [facility] VisitID: [id number] [address] [place] [address] 65y, F Registration Date/Time: 02/25/2016 Weight: 91.6 kg Height/Length: 67 in. BMI: 31.7 ALLERGIES: No Known Drug Allergy The patient's Home Medications are listed below: THE FOLLOWING MEDICATIONS NEED TO BE RECONCILED: FentaNYL Transdermal 75 mcg/hr, every 72 hours Furosemide Oral (20 mg) 1 tablet, daily Imitrex Oral 50 mg, PRN LevETIRAcetam Oral (1000 mg) 1-1/2 tablets, daily, and at hs take 1 tablet Levothyroxine Sodium Oral 150 mcg, daily LORazepam Oral (1 mg) 1 tablet, 3x a day Nitroglycerin Translingual (0.4 mg/spray), PRN Omeprazole Oral 20 mg, daily Pravastatin Sodium Oral 20 mg, daily Promethazine HCl Oral 25 mg, 2x a day SEROquel Oral (100 mg) 1 tablet, 3x a day Stool Softener Oral Triamcinolone Acetonide External (0.1 %), 2x a day Venlafaxine HCl ER Oral (75 mg) 1 tablet, TID Verapamil HCl Oral (240 mg), daily Vitamin D3 Oral (5000 unit) 1 tablet, daily Zofran Oral, RX 02/27/13 The source(s) of the original Home Medication information: patient The following Medications were given to the patient in the Emergency Department: IV NS IV Fluids bolus 0, then 999 mL/hr, administered: 02/26/2016 12:05:00 AM IV NS IV Fluids bolus 0, then 999 mL/hr, administered: 02/26/2016 1:15:00 AM Zofran [IVP] IVP 4 mg, administered: 02/26/2016 3:24:00 AM The following Medications were prescribed to the patient: None.
--- NOTE | 2016-02-26 08:16 | ED DISCHARGE INSTRUCTIONS ---
Patient: JESSICA CRAVEN General Instructions [facility] VisitID: [id number] [address] [place] [address] 65y, F Registration Date/Time: 02/25/2016 Pancreatitis. Renal insufficiency. (Electronically signed by Fermin Zaman MD 02/26/2016 8:16)
--- NOTE | 2016-02-26 08:16 | ED DISCHARGE INSTRUCTIONS ---
Patient: JESSICA CRAVEN General Instructions [facility] VisitID: [id number] [address] [place] [address] 65y, F Registration Date/Time: 02/25/2016 Pancreatitis. Renal insufficiency. (Electronically signed by Fermin Zaman MD 02/26/2016 8:16)
--- NOTE | 2016-02-26 08:16 | ED MAR SUMMARY ---
..... Medication Administration Record [facility] [address] [place] [address] Patient: JESSICA CRAVEN Visit ID: [id number] 65y, F Weight: 91.6 kg Height/Length: 67 in BMI: 31.7 ALLERGIES: No Known Drug Allergy Start 00:05 02/26/2016 Manda Kramer R.N., Stop 00:50 02/26/2016 Manda Kramer R.N. Medication Administered: IV NS (SALINE), Dose: IV Fluids over 30 minute(s), Rate: 999 mL/hr, Dispensed: 1000 mL bag, Site: #1 right AC. Medication Ordered: IV NS : initial bolus 500 mL (1000 mL/hr), then 125 mL/hr for 4h (NOW); Urgent. Start 01:15 02/26/2016 Manda Kramer R.N., Continued Upon Admission 03:32 02/26/2016 Manda Kramer R.N. Medication Administered: IV NS (SALINE), Dose: IV Fluids over 1 hour(s), Rate: 999 mL/hr, Dispensed: 1000 mL bag, Site: #1 right AC. Medication Ordered: IV NS : initial bolus 1000 mL (1000 mL/hr), then 200 mL/hr for 4h (NOW); Urgent. Given 03:24 02/26/2016 Manda Kramer R.N. Medication Administered: ZOFRAN [IVP] (ONDANSETRON HCL), Dose: 4 mg IVP over 1 minute(s), Site: #1 right AC. Medication Ordered: Zofran IV 4 mg (NOW).
--- NOTE | 2016-02-26 08:16 | ED MAR SUMMARY ---
..... Medication Administration Record [facility] [address] [place] [address] Patient: JESSICA CRAVEN Visit ID: [id number] 65y, F Weight: 91.6 kg Height/Length: 67 in BMI: 31.7 ALLERGIES: No Known Drug Allergy Start 00:05 02/26/2016 Manda Kramer R.N., Stop 00:50 02/26/2016 Manda Kramer R.N. Medication Administered: IV NS (SALINE), Dose: IV Fluids over 30 minute(s), Rate: 999 mL/hr, Dispensed: 1000 mL bag, Site: #1 right AC. Medication Ordered: IV NS : initial bolus 500 mL (1000 mL/hr), then 125 mL/hr for 4h (NOW); Urgent. Start 01:15 02/26/2016 Manda Kramer R.N., Continued Upon Admission 03:32 02/26/2016 Manda Kramer R.N. Medication Administered: IV NS (SALINE), Dose: IV Fluids over 1 hour(s), Rate: 999 mL/hr, Dispensed: 1000 mL bag, Site: #1 right AC. Medication Ordered: IV NS : initial bolus 1000 mL (1000 mL/hr), then 200 mL/hr for 4h (NOW); Urgent. Given 03:24 02/26/2016 Manda Kramer R.N. Medication Administered: ZOFRAN [IVP] (ONDANSETRON HCL), Dose: 4 mg IVP over 1 minute(s), Site: #1 right AC. Medication Ordered: Zofran IV 4 mg (NOW).
--- NOTE | 2016-02-26 08:16 | ED MED RECONCILIATION SUMMARY ---
Patient: JESSICA CRAVEN Medication Reconciliation Report [facility] VisitID: [id number] [address] [place] [address] 65y, F Registration Date/Time: 02/25/2016 Weight: 91.6 kg Height/Length: 67 in. BMI: 31.7 ALLERGIES: No Known Drug Allergy The patient's Home Medications are listed below: THE FOLLOWING MEDICATIONS NEED TO BE RECONCILED: FentaNYL Transdermal 75 mcg/hr, every 72 hours Furosemide Oral (20 mg) 1 tablet, daily Imitrex Oral 50 mg, PRN LevETIRAcetam Oral (1000 mg) 1-1/2 tablets, daily, and at hs take 1 tablet Levothyroxine Sodium Oral 150 mcg, daily LORazepam Oral (1 mg) 1 tablet, 3x a day Nitroglycerin Translingual (0.4 mg/spray), PRN Omeprazole Oral 20 mg, daily Pravastatin Sodium Oral 20 mg, daily Promethazine HCl Oral 25 mg, 2x a day SEROquel Oral (100 mg) 1 tablet, 3x a day Stool Softener Oral Triamcinolone Acetonide External (0.1 %), 2x a day Venlafaxine HCl ER Oral (75 mg) 1 tablet, TID Verapamil HCl Oral (240 mg), daily Vitamin D3 Oral (5000 unit) 1 tablet, daily Zofran Oral, RX 02/27/13 The source(s) of the original Home Medication information: patient The following Medications were given to the patient in the Emergency Department: IV NS IV Fluids bolus 0, then 999 mL/hr, administered: 02/26/2016 12:05:00 AM IV NS IV Fluids bolus 0, then 999 mL/hr, administered: 02/26/2016 1:15:00 AM Zofran [IVP] IVP 4 mg, administered: 02/26/2016 3:24:00 AM The following Medications were prescribed to the patient: None.
[2016-02-26] MEDS ORDERED: FUROSEMIDE20 MG PO (08:53)
[2016-02-26] MEDS ORDERED: DURAGESIC12 MCG/HR TOP (08:53)
[2016-02-26] MEDS ORDERED: IMITREX50 MG PO (08:54)
[2016-02-26] MEDS ORDERED: KEPPRA500 MG PO (08:55)
[2016-02-26] MEDS ORDERED: LORAZEPAM1 MG PO (08:56)
[2016-02-26] MEDS ORDERED: LEVOTHYROXINE50 MCG PO (08:56)
[2016-02-26] MEDS ORDERED: NITRO-DUR0.4 MG/HR TOP (08:58)
[2016-02-26] MEDS ORDERED: PRAVACHOL20 MG PO (08:59)
[2016-02-26] MEDS ORDERED: PRILOSEC20 MG PO (08:59)
[2016-02-26] MEDS ORDERED: PHENERGAN EQUIV25 MG PO ×2 (09:00→09:01)
[2016-02-26] MEDS ORDERED: SEROQUEL100 MG PO (09:02)
[2016-02-26] MEDS ORDERED: VERAPAMIL HCL240 M4 PO (09:05)
[2016-02-26] MEDS ORDERED: VENLAFAXINE H37.5 M1 PO (09:05)
[2016-02-26] MEDS ORDERED: VITAMIN D-31000 UNIT PO (09:05)
--- NOTE | 2016-02-26 17:40 | Progress Note ---
Subjective General See prior entry Physical Exam Vital Signs / I&Os Vital Signs Date Time Temp Pulse Resp B/P Pulse O2 O2 Flow FiO2 Ox Delivery Rate 02/25 1623 98.6 95 22 96/62 90 Room Air 0.0 02/25 1420 97.9 108 20 123/88 90 Room Air 0.0 02/25 1108 98.2 92 22 122/79 91 Room Air 0.0 02/25 0642 98.2 89 20 114/79 93 Room Air 0.0 02/25 0348 98.8 96 18 112/83 93 Room Air General Appearance Alert, Oriented X3, Cooperative, No acute distress HEENT Normal exam, PERRLA, EOMI, Moist mucous membranes, poor dentition Lungs Clear to auscultation, Normal air movement Breasts Symmetric Neck Supple, No JVD, No thyromegaly, No lymphadenopathy Cardiovascular Regular rate and rhythm, No murmurs, gallops, rubs Abdomen Normal exam, Normal bowel sounds, Soft, No guarding, mild tenderness diffusely Extremities Normal exam Skin No Rashes, No Breakdown Neurological Normal speech, Normal tone, Sensation intact, Strength 5/5 x4 ext's , No lateralizing signs Psych/Mental Status Mood normal, Confused, sl confusion. No memory of events since Wednesday LAB Results Laboratory Tests 02/25 02/25 02/25 02/25 0028 0028 0028 0910 Chemistry Plasma Sodium (136 - 145 mmol/L) 133 139 Plasma Potassium (3.5 - 5.1 mmol/L) 3.6 4.0 Plasma Chloride (98 - 107 mmol/L) 96 102 CO2 (Enzymatic) (21 - 32 mmol/L) 27 30 BUN (7 - 18 mg/dL) 19 23 Creatinine (0.6 - 1.3 mg/dL) 1.9 1.4 Est GFR ( Amer) (mL/min) 34.39 48.92 Est GFR (Non-Af Amer) (mL/min) 28.38 40.37 Glucose (70 - 110 mg/dL) 133 113 Plasma Calcium (8.5 - 10.1 mg/dL) 7.3 7.4 Phosphorus (2.5 - 4.9 mg/dL) 4.1 Plasma Magnesium (1.8 - 2.4 mg/dL) 2.2 Total Bilirubin (0.0 - 1.0 mg/dL) 0.5 AST (15 - 37 U/L) 36 ALT (12 - 78 U/L) 37 Alkaline Phosphatase (46 - 116 U/L) 110 Creatine Kinase (24 - 260 U/L) 108 Troponin (0.00 - 1.5 ng/mL) <0.05 Total Protein (6.4 - 8.2 g/dL) 7.2 Albumin (3.3 - 5.0 g/dL) 3.6 Amylase (25 - 115 U/L) 478 Lipase (73 - 393 U/L) 2918 Hematology WBC (4.5 - 11.5 K/uL) 10.4 RBC (4.00 - 5.20 M/uL) 4.46 Hgb (12.0 - 16.0 gm/dL) 13.7 Hct (36.0 - 46.0 %) 41.5 MCV (80 - 100 fL) 93 MCH (26 - 34 pg) 31 RDW (11.6 - 14.8 %) 14.8 Neut % (Auto) (50 - 75 %) 80.3 Lymph % (Auto) (25 - 40 %) 12.9 [place] % (Auto) (3 - 14 %) 5.9 Eos % (Auto) (0 - 4 %) 0.4 Baso % (Auto) (0 - 2 %) 0.5 Plt Count, EDTA (150 - 400 K/uL) 212 PUBS MCHC (31 - 37 g/dL) 33 Toxicology Urine Opiates Screen (NEGATIVE) POSITIVE Urine Methadone Screen (NEGATIVE) NEGATIVE Ur Barbiturates Screen (NEGATIVE) NEGATIVE U Amphetamin/Meth Scrn (NEGATIVE) NEGATIVE MDMA (Ecstasy) Screen (NEGATIVE) NEGATIVE U Benzodiazepines Scrn (NEGATIVE) NEGATIVE Urine Cocaine Screen (NEGATIVE) NEGATIVE U Cannabinoids Screen (NEGATIVE) POSITIVE Plasma/Serum Ethyl Alc (3 - 10 mg/dL) <3 Urines Urine Color YELLOW Urine Appearance CLEAR Urine pH (5.0 - 8.0) 8.0 Ur Specific [place] (1.010 - 1.030) 1.015 Urine Protein (NEGATIVE) 1+ Urine Ketones (NEGATIVE) NEGATIVE Urine Blood (NEGATIVE) NEGATIVE Urine Nitrite (NEGATIVE) NEGATIVE Urine Bilirubin (NEGATIVE) NEGATIVE Urine Urobilinogen (0.2 - 1.0 EU/dL) 0.2 Ur Leukocyte Esterase (NEGATIVE) NEGATIVE Urine RBC (0 - 1 rbc/hpf) 0-1 Urine WBC (0 - 1 wbc/hpf) 0-1 Ur Epithelial Cells (0 - 5 EPI/hpf) 0-1 Urine Bacteria (NONE SEEN) NONE SEEN Urine Glucose (NEGATIVE) NEGATIVE Urine Comment CULT NOT INDICATED 02/25 0910 Chemistry TSH 3rd Generation (0.30 - 3.74 uIU/mL) 8.552 Assessment and Plan Problem List 1. Pancreatitis Plan PO fluids 2. Renal insufficiency Plan Improving. Decrease IV rate 3. Alcohol abuse Plan Withdrawl protocol 4. Bipolar 2 disorder
--- NOTE | 2016-02-26 19:02 | DIAGNOSTIC IMAGING REPORT ---
PROCEDURE: US ABDOMEN ULTRASOUND-COMPLETE INDICATION: Pancreatitis. Distended gallbladder. TECHNIQUE: Clifford scale and color Doppler sonographic images of the abdomen were obtained. COMPARISON: Comparison is made to CT abdomen and pelvis earlier in the day (02/26/2016). FINDINGS: Gallbladder is moderately distended. No evidence of gallstones or gallbladder wall thickening. Common duct is borderline dilated (7 mm). No evidence of intrahepatic ductal dilation. Moderate fatty infiltration of liver. Pancreas and spleen are obscured by bowel gas. Kidneys are normal (right 9.6 cm, left 10.9 cm). Proximal aorta is normal (3.0 cm). Mid and distal aorta are obscured by bowel gas. IVC is normal. IMPRESSION: 1. Moderate distention of the gallbladder, with borderline/mild distention of the common duct (7 mm). While there is no evidence of gallstones, consider occult common duct stone. Nuclear medicine biliary scan may be of assistance in confirming. 2. Moderate fatty infiltration of the liver. 3. Otherwise negative abdominal ultrasound.
--- NOTE | 2016-02-26 19:03 | HISTORY AND PHYSICAL ---
ADMITTED: 02/26/2016 CHIEF COMPLAINT: 1. Abdominal pain HISTORY OF PRESENT ILLNESS: This is a 65-year-old female with a history of alcohol abuse, presenting to the hospital with complaints of abdominal pain since Wednesday with an episode of altered mental status this evening. The patient states that she started having abdominal pain on Wednesday underneath her left ribcage, which then spread to her epigastric area and radiating into her back. She said that she has tried soda water and Tums with minimal improvement over the last couple of days. Her finally called EMS the evening before discharge when she had this episode of altered mental status is including somnolence which she has no memory. MEDICAL/SURGICAL HISTORY: 1. Includes chronic constipation. 2. Low back pain. 3. Hypertension. 4. Bipolar disorder. 5. Scoliosis. 6. L5 disk herniation. 7. Alcohol abuse. 8. Seizure disorder. 9. Dyslipidemia. 10. Right knee arthroscopy with meniscus repair. 11. Bladder surgery. MEDICATIONS: The patient did not know any of the dosages of her medications. However, she did have all of them written down. I have asked the nursing staff to call her pharmacy and her physician's office in the morning to obtain an accurate medication list. 1. Sumatriptan. 2. Promethazine. 3. Furosemide. 4. Fentanyl patch. 5. Pravastatin. 6. Levothyroxine. 7. Keppra, possibly 1000 mg p.o. b.i.d. 8. Seroquel. 9. Lorazepam. 10. Verapamil. 11. Venlafaxine. 12. Omeprazole. ALLERGIES: 1. NONE. SOCIAL HISTORY: The patient is . She denies any current drug use, although did use marijuana about a week ago for the very first time and states she will never use it again. She has a long history of smoking since the age of 18; however, has currently cut back to a fourth of a pack a day from 1 pack per day. She has tried to quit several times and her last drink was 4 days ago. She is retired. FAMILY HISTORY: REVIEW OF SYSTEMS: A full 12-point review of systems was negative except as per HPI. ED COURSE: The patient was admitted to the hospital and diagnosed with pancreatitis. In the emergency department, she was given 2 liters of fluid and then turned down to 200 mL per hour. PHYSICAL EXAMINATION: VITAL SIGNS: Blood pressure is 112/83, pulse is 96, O2 saturation 93 on room air , respiration rate is 18. T-max is 37.1 degrees Celsius. GENERAL: This is a middle-aged female lying in bed in no apparent distress. HEENT: Head is atraumatic and normocephalic. NECK: Trachea is midline, there is no JVD. HEART: S1 and S2, regular rate and rhythm. No S3, S4, murmurs, gallops, or rubs. LUNGS: Very mild expiratory wheezing, but are otherwise clear with good air movement. ABDOMEN: Soft, nondistended, without hepatosplenomegaly. Left upper quadrant and epigastric area are extremely tender, but without peritoneal signs. EXTREMITIES: There is no peripheral edema. LAB/IMAGING: White blood cell count 10.4, hemoglobin 13.7, hematocrit is 41.5, and platelets of 212. Sodium 133, potassium 3.6, chloride of 96, bicarbonate 27, BUN of 19, creatinine of 1.9, glucose 133, calcium 7.3, total protein 7.2, albumin is 3.6, total protein is 0.5, alkaline phosphatase 110, AST 36, ALT 37, lipase of 2918, amylase of 478. Troponin is less than 0.05. ETOH is less 3. Urine toxicology screen was positive for THC and opiates. CT scan showed pancreatitis. Chest x-ray was normal. UA is negative. EKG showed sinus rhythm at 99 beats per minute with a QTc of 528. IMPRESSION/PLAN: 1. This is a 65-year-old female with a long history of alcohol abuse, presenting to the hospital with abdominal pain secondary to pancreatitis. She is made n.p.o. and put on IV fluids and will monitor urine output closely to make sure she is adequately resuscitated and adjust IV fluids accordingly. Her white blood cell count is normal and her CT scan was okay, so we will allow her to drink sips of fluid with her medications and this was reviewed with Dr. Marlow. The nursing staff will contact Dr. Marlow's and/or the pharmacy's offices to obtain an accurate medication list and other necessary home medications will be started. 2. Acute renal failure. This is likely prerenal and should improve with IV fluids. 3. Substance abuse. The patient does claim that her last drink was 4 days ago and she does have a negative ETOH level. However, we will monitor her closely for alcohol withdrawal symptoms and start protocol accordingly. 4. Prophylaxis: The patient will be on sequential compression devices and will be on gastrointestinal ulcer prophylaxis as she is n.p.o. with Protonix. 5. CODE STATUS: FULL CODE.
[2016-02-27 02:20] VITALS: BP 124/86
[2016-02-27 06:46] VITALS: BP 125/81
--- NOTE | 2016-02-27 07:58 | Progress Note ---
Subjective General Nurse reported confusion and agitation thru pm. Started on withdrawl protocol. Well sedated. No complaints. Denies pain. Advised as to condition and how alcohol has led to pancreatitis and withdrawls. Constitutional Denies: Fever, Chills, Sweats, Weakness, Malaise, Other. Eyes Denies: Pain, Vision Change, Conjunctival Inflammation, Eyelid Inflammation, Redness, Other. ENT Denies: Ear Pain, Ear Discharge, Nose Pain, Nasal Discharge, Nasal Congestion, Mouth Pain, Mouth Swelling, Throat Pain, Throat Swelling, Other. Respiratory SOB w/exertion, Wheezing. Denies: Cough, Dry, Hemoptysis, Pleuritic Pain, Sputum. Cardiovascular Denies: Chest Pain, Palpitations, Orthopnea, PND, Edema. Gastrointestinal Denies: Nausea, Vomiting, Abdominal Pain, Diarrhea, Constipation, Melena, Hematochezia. Genitourinary Frequency. Denies: Dysuria, Incontinence, Hematuria, Retention. Musculoskeletal Back Pain. Denies: Neck Pain, Shoulder Pain, Arm Pain, Hand Pain, Leg Pain, Foot Pain, Other. Skin Denies: Rash, Lesions, Jaundice, Bruising, Other. Neurological Confusion. Physical Exam Vital Signs / I&Os Vital Signs Date Time Temp Pulse Resp B/P Pulse O2 O2 Flow FiO2 Ox Delivery Rate 02/26 0646 98.1 84 12 125/81 100 Nasal 4.0 Cannula 02/26 0220 97.9 79 12 124/86 98 Nasal 4.0 Cannula 02/25 2354 2.0 02/25 2337 Nasal 2.0 Cannula 02/25 2131 98.8 81 10 109/72 94 Nasal 2.0 Cannula 02/25 1841 97.3 98 20 107/73 91 Room Air 02/25 1738 Room Air 1.0 02/25 1623 98.6 95 22 96/62 90 Room Air 0.0 02/25 1420 97.9 108 20 123/88 90 Room Air 0.0 02/25 1108 98.2 92 22 122/79 91 Room Air 0.0 I&O 02/25 0800 02/25 1600 02/26 0000 Intake Total 3407 Output Total 50 Balance -50 3407 General Appearance Alert, Oriented X3, Cooperative, Mild distress HEENT PERRLA, EOMI, Moist mucous membranes Lungs Wheezy. Basilar rales bilat Breasts Symmetric Neck Supple, No JVD, No thyromegaly, No lymphadenopathy Cardiovascular Regular rate and rhythm, No murmurs, gallops, rubs Abdomen Normal bowel sounds, Soft, No tenderness, No guarding Extremities No cyanosis, No clubbing, No edema, No tenderness Skin No Rashes, No Breakdown, No Significant Lesions Neurological Normal exam, Strength 5/5 x4 ext's, No lateralizing signs Psych/Mental Status Mental status normal, Mood normal LAB Results Laboratory Tests 02/25 02/25 02/26 02/26 0910 0910 0625 0625 Chemistry Plasma Sodium (136 - 145 mmol/L) 139 137 Plasma Potassium (3.5 - 5.1 mmol/L) 4.0 3.6 Plasma Chloride (98 - 107 mmol/L) 102 103 CO2 (Enzymatic) (21 - 32 mmol/L) 30 29 BUN (7 - 18 mg/dL) 23 27 Creatinine (0.6 - 1.3 mg/dL) 1.4 1.4 Est GFR ( Amer) (mL/min) 48.92 48.92 Est GFR (Non-Af Amer) (mL/min) 40.37 40.37 Glucose (70 - 110 mg/dL) 113 90 Plasma Calcium (8.5 - 10.1 mg/dL) 7.4 7.8 Total Bilirubin (0.0 - 1.0 mg/dL) 0.5 AST (15 - 37 U/L) 23 ALT (12 - 78 U/L) 29 Alkaline Phosphatase (46 - 116 U/L) 90 Total Protein (6.4 - 8.2 g/dL) 6.5 Albumin (3.3 - 5.0 g/dL) 3.3 Amylase (25 - 115 U/L) 152 TSH 3rd Generation (0.30 - 3.74 uIU/mL) 8.552 Hematology WBC (4.5 - 11.5 K/uL) 6.2 RBC (4.00 - 5.20 M/uL) 3.36 Hgb (12.0 - 16.0 gm/dL) 10.4 Hct (36.0 - 46.0 %) 31.6 MCV (80 - 100 fL) 94 MCH (26 - 34 pg) 31 RDW (11.6 - 14.8 %) 15.4 Neut % (Auto) (50 - 75 %) 68.7 Lymph % (Auto) (25 - 40 %) 18.7 [place] % (Auto) (3 - 14 %) 8.7 Eos % (Auto) (0 - 4 %) 3.4 Baso % (Auto) (0 - 2 %) 0.5 Plt Count, EDTA (150 - 400 K/uL) 140 PUBS MCHC (31 - 37 g/dL) 33 Assessment and Plan Problem List 1. Pancreatitis Plan normal cbc and amylase today. Probably fluid overload and will add lasixx to diurese. 2. Renal insufficiency Plan Improved with fluids 3. Alcohol abuse Plan Discussed at length. Admits to 2 large cans/day. Withdrawl protocol initiated. 4. Bipolar 2 disorder Plan Medicated. Mood stable. Amnestic of recent illness since Wednesday. 5. Hypothyroid Plan Check full TFT's 6. Cardiac arrhythmia, unspecified Plan Controlled 7. Seizure disorder Plan controlled on Keppra
[2016-02-27 10:15] VITALS: BP 108/42
[2016-02-27 14:16] VITALS: BP 97/65
[2016-02-27 18:54] VITALS: BP 109/83
[2016-02-27 22:44] VITALS: BP 103/64; BP 89/66
[2016-02-28 03:12] VITALS: BP 109/76
[2016-02-28 06:48] VITALS: BP 113/74
--- NOTE | 2016-02-28 08:51 | Progress Note ---
Subjective General sleepy and confused per nurse.feeds herself.Oriented x3. Denies tremor or pain. Mild abd pain with inspiration. Tolerating full liquids. No N x 2 days. No BM Constitutional Denies: Fever, Chills, Sweats, Weakness, Malaise. Eyes Denies: Pain, Vision Change, Conjunctival Inflammation, Eyelid Inflammation, Redness, Other. ENT Denies: Ear Pain, Ear Discharge, Nose Pain, Nasal Discharge, Nasal Congestion, Mouth Pain, Mouth Swelling, Throat Pain, Throat Swelling, Other. Respiratory Denies: Cough, Dry, SOB w/exertion, Wheezing, Hemoptysis, Pleuritic Pain, Sputum , Other. Cardiovascular Denies: Chest Pain, Palpitations, Orthopnea, PND, Edema, Light-headedness. Gastrointestinal Abdominal Pain, Constipation. Denies: Nausea, Vomiting, Diarrhea, Melena, Hematochezia. Genitourinary Denies: Dysuria, Frequency, Incontinence, Hematuria, Retention. Musculoskeletal Denies: Neck Pain, Shoulder Pain, Arm Pain, Back Pain, Hand Pain, Leg Pain, Foot Pain, Other. Skin Denies: Rash, Lesions, Jaundice, Bruising. Neurological Confusion (mild). Denies: Weakness, Numbness, Incoordination, Change in speech, Seizures. Physical Exam Vital Signs / I&Os Vital Signs Date Time Temp Pulse Resp B/P Pulse O2 O2 Flow FiO2 Ox Delivery Rate 02/27 0648 97.9 76 12 113/74 95 Room Air 02/27 0312 98.1 66 20 109/76 98 Nasal 2.0 Cannula 02/27 0015 Nasal 2.0 Cannula 02/26 2244 98.1 73 22 103/64 92 Room Air 02/26 2012 2.0 02/26 1854 98.8 76 22 109/83 99 Nasal 2.0 Cannula 02/26 1710 Nasal 2.0 Cannula 02/26 1416 98.2 81 22 97/65 92 Nasal 2.0 Cannula 02/26 1015 98.2 86 22 108/42 92 Nasal 2.0 Cannula 02/26 0948 2.0 I&O 02/26 0800 02/26 1600 02/27 0000 Intake Total 991 500 280 Output Total 0 950 425 Balance 991 -450 -145 General Appearance Alert, Oriented X3, Cooperative, No acute distress HEENT Normal exam, PERRLA, EOMI, Moist mucous membranes Lungs Normal exam, Clear to auscultation Breasts Symmetric Neck Normal exam, Supple, No JVD, No thyromegaly Cardiovascular Regular rate and rhythm, No murmurs, gallops, rubs Abdomen Normal bowel sounds, Soft, No tenderness, No guarding, No rebound Extremities Normal exam Skin No Rashes, No Breakdown, No Significant Lesions Neurological Normal exam, No lateralizing signs Psych/Mental Status Mental status normal, Mood normal Assessment and Plan Problem List 1. Pancreatitis Plan Resolved. Tolerating full liqid diet 2. Alcohol abuse Plan Stable. May d/c today on tid ativan dose as prior 3. Cardiac arrhythmia, unspecified Plan ccontrolled on verapamil 4. Hypothyroid Plan Mild and will reevaluate as OP 5. Seizure disorder 6. Bipolar 2 disorder Plan controlled but aggravated by EtOH 7. Renal insufficiency Plan Resolved
--- NOTE | 2016-02-28 08:58 | Provider's Discharge Care Plan ---
Problem, Goal, Plan Problem List 1. Pancreatitis Goals: No readmissions Instructions: Follow up as directed, Take meds as directed, NO ALCOHOL
--- NOTE | 2016-02-28 08:58 | Provider's Discharge Care Plan ---
Problem, Goal, Plan Problem List 1. Pancreatitis Goals: No readmissions Instructions: Follow up as directed, Take meds as directed, NO ALCOHOL
--- NOTE | 2016-02-28 09:45 | DISCHARGE SUMMARY ---
ADMIT DATE: 02/26/2016 DISCHARGE DATE: 02/28/2016 ADMITTING DIAGNOSIS: Pancreatitis. DISCHARGE DIAGNOSES: 1. Pancreatitis. 2. Renal insufficiency. 3. Bipolar disorder. 4. Alcohol abuse. 5. Alcohol withdrawal. 6. Cardiac arrhythmia. 7. Chronic back pain. 8. Opiate dependence. BRIEF HISTORY: The patient is a 65-year-old woman who has a history of alcohol abuse and had been abstinent for some time, but about a month or 2 ago started drinking again up to 4 cans of beer a day. She developed abdominal pain, nausea and vomiting 3 days before admission, which prompted her to come to the emergency department where she was evaluated. Laboratory and CAT scan there discovered pancreatitis and she was therefore admitted with this diagnosis as well as alcohol abuse. Other findings included an elevated creatinine indicating renal insufficiency likely due to poor hydration. HOSPITAL COURSE: The patient was admitted and given morphine for pain control. More importantly, she was hydrated with normal saline and gradually improved over the next 2 hospital days. She did develop signs of delirium tremens and required alcohol abstinence withdrawal protocol to be initiated for 1 day. She recovered well from this. There were no other complications during the hospitalization. CAT scan on admission showed pancreatitis with a distended gallbladder and ultrasound confirmed this, but was without any signs of gallstones. Chest x-ray was unremarkable. She did require some albuterol and diuresis probably due to some fluid overload in the treatment of her pancreatitis. This responded well to those measures and she was comfortable and with normal respiratory status prior to discharge. Her lab and physical examination on discharge are as per the progress note on the discharge date. DISCHARGE INSTRUCTIONS/MEDICATIONS: Final assessment is pancreatitis and alcohol withdrawal. Plan: The patient should follow up at the [facility] next week. There are no changes to her previous medications which were reviewed with the patient.
[2016-02-28 11:13] VITALS: BP 126/90
[2016-02-28 14:56] VITALS: BP 124/81
== END 2016-02-28 16:00 | disposition home or self-care (01) | DRG 439 ==
LOC: ED SRH 23:19 → TRANS SRH 02-26 02:41 → ACUTE2 SRH 02-26 02:41
PROVIDERS: ADMIT Family Medicine
DX: K85.20 Alcohol induced acute pancreatitis without necrosis or infection (principal); F10.231 Alcohol dependence with withdrawal delirium; F11.20 Opioid dependence, uncomplicated; F31.81 Bipolar II disorder; N28.9 Disorder of kidney and ureter, unspecified; E87.70 Fluid overload, unspecified; G89.29 Other chronic pain; M54.9 Dorsalgia, unspecified; E03.9 Hypothyroidism, unspecified; Z72.0 Tobacco use
CPT/HCPCS: 81460; 90004; 90047; 90100; 90616; 91283; 91284; 91287; 91288; 92010; 92235; 92530; 92610; 92720; 92740; 92760; 92761; 92762; 92763; 92764; 92765; 92766; 92767; 93080; 93140; 95059

== ENCOUNTER 2016-03-21 12:14 | Emergency (ER) | payer OTHER ==
[~2016-03-21 12:14] MED LIST: DURAGESIC12 MCG/HR TOP; FUROSEMIDE20 MG PO; IMITREX50 MG PO; KEPPRA500 MG PO; LEVOTHYROXINE50 MCG PO; LORAZEPAM1 MG PO; NITRO-DUR0.4 MG/HR TOP; PHENERGAN EQUIV25 MG PO; PRAVACHOL20 MG PO; PRILOSEC20 MG PO; SEROQUEL100 MG PO; VENLAFAXINE H37.5 M1 PO; VERAPAMIL HCL240 M4 PO; VITAMIN D-31000 UNIT PO
--- NOTE | 2016-03-21 15:18 | ED ORDER SUMMARY ---
..... Patient: JESSICA CRAVEN OrderSheet [facility] VisitID: [id number] [address] [place] [address] 65y, F Registration Date/Time: 03/21/2016 ORDER SHEET Weight: 88.4 kg (stated) Allergies: No Known Drug Allergy GENERAL ORDERS: Cardiac Panel Stat (13:12 03/21/2016 Bryce SCHAEFER) (Ack 13:18 TBergley) (13:35 Sammieeck R.N.) Amylase Urgent (13:03/21/2016 Bryce SCHAEFER) (Ack 13:18 TBergley) (13:35 Nemo R.N.) Lipase Urgent (13:03/21/2016 Bryce SCHAEFER) (Ack 13:18 TBergley) (13:35 Sammieeck R.N.) Blood Culture (No) (N/A) Urgent (13:29 03/21/2016 Bryce SCHAEFER) (13:35 Sammieeck R.N.) MEDICATION ORDERS: IV FLUIDS: IV NS : initial bolus 1000 mL (1000 mL/hr), then none - for X1 (NOW); Routine (13:03/21/2016 Bryce SCHAEFER) (13:50 BERNICEimbeck R.N.) Dilaudid IV 0.5 mg (NOW) (Sched q5m for X2); Routine (prn) (Sched q5m for X2) (13:03/21/2016 Bryce SCHAEFER) (13:50 Sammieeck R.N.) Ativan IV 0.5 mg (NOW) (13:11 03/21/2016 Bryce SCHAEFER) (13:51 Nemo R.N.) Toradol IV 30 mg (NOW) (13:12 03/21/2016 Bryce SCHAEFER) (13:52 Nemo R.N.) Dilaudid IV 0.5 mg (NOW) (Sched q5m for X2); Routine (prn) (13:16 03/21/2016 Bryce SCHAEFER) (13:57 BERNICEimbeck R.N.) ORDER SHEET NOTES: [Electronically signed by Murphy Alonso R.N. (07:39 03/22/2016)] [Electronically signed by Ryan Au MD (23:07 03/24/2016)] [Electronically locked/signed by Murphy Alonso R.N. (07:39 03/22/2016)]
--- NOTE | 2016-03-21 15:18 | ED NURSING NOTES ---
Clinical Report - Nurses [facility] [address] [place] [address] 03/21/2016 12:15 Patient: JESSICA CRAVEN TRIAGE Triage time 12:32. Acuity: LEVEL 3. Chief Complaint: ABDOMINAL PAIN, NAUSEA and VOMITING and (Fentanyl withdrawal, last Duragesic patch was removed 2 days ago.). 12:37 03/21/16. SEPSIS SCREEN: Sepsis Screen. Negative (no infection suspected/documented). MIKY COMA SCORE: Miky Coma Scale: 15- eyes open spontaneously (4); best verbal response- oriented x 4 (5); best motor response- obeys commands (6). --12:46 Murphy Alonso R.N. 12:31 03/21/16. BP: 163/108. HR: 91. RR: 20. O2 saturation: 97% on room air. Temp: 99.4 F (oral). Pain level now: 8. --12:46 Murphy Alonso R.N. Weight: 88.4 kg stated. Height/Length: 68 inches Per Patient. BMI: 29.6. --12:36 Murphy Alonso R.N. Medications FentaNYL Transdermal 75 mcg/hr, every 72 hours. Furosemide Oral (Tablet 20 mg) 1 tablet, daily. Imitrex Oral 50 mg, PRN. LevETIRAcetam Oral (Tablet 1000 mg) 1-1/2 tablets, daily (and at hs take 1 tablet ). Levothyroxine Sodium Oral 150 mcg, daily. LORazepam Oral (Tablet 1 mg) 1 tablet, 3x a day as needed. Nitroglycerin Translingual (Solution 0.4 mg/spray), PRN. Omeprazole Oral 20 mg, daily. Pravastatin Sodium Oral 20 mg, daily. --12:35 Murphy Alonso R.N. Promethazine HCl Oral 25 mg, 2x a day as needed. SEROquel Oral (Tablet 100 mg) 1 tablet, 3x a day. Stool Softener Oral. Triamcinolone Acetonide External (Cream 0.1 %), 2x a day as needed. Venlafaxine HCl ER Oral (Tablet Extended Release 24 Hour 75 mg) 1 tablet, TID. Verapamil HCl Oral (Tablet Extended Release 240 mg), daily. Zofran Oral (RX 02/27/13). --12:35 Murphy Alonso R.N. Allergies No Known Drug Allergy. --12:35 Murphy Alonso R.N. History Arrived by private vehicle. Historian: patient. SOCIAL HX: Light tobacco smoker (cigarette)- less than 1/2 a pack per day. Occasional alcohol use. History of occasional drug use: marijuana. ABUSE ASSESSMENT: No report of abuse. --12:46 Murphy Alonso R.N. PROBLEMS: Pancreatitis. Renal Insufficiency. Chest Pain. Bipolar Disorder. Anxiety Reaction. Seizure. Hypertension. Hypothyroidism. Contusion. Alcoholism. Alcohol Intoxication. Narcotic Dependence. Suicidal Ideation. Mental Illness. Depression. UTI - Urinary Tract Infection. Cellulitis. Scoliosis. Seizure Disorder. Back Pain. Hematuria. Hyponatremia. Abdominal Pain. Hyperlipidemia. Atypical Chest Pain. Changed Mental Status. Drug Poisoning. Chronic Back Pain. Headache. LNMP - Last Normal Menstrual Period. Migraine Headache. Lifestyle / Substance Problems. Fibromyalgia. Immunizations. --12:35 Murphy Alonso R.N. ADDITIONAL SURGERIES: Rt knee. --12:35 Murphy Alonso R.N. Interventions ID band on patient. To treatment room. --12:46 Murphy Alonso R.N. PHYSICAL ASSESSMENT 12:48 03/21/16. Ambulatory to room. GENERAL / NEURO / PSYCH: Alert. Oriented X 4. Appears in pain. HEENT: Mucous membranes are pink. RESPIRATORY: Respirations not labored. Breath sounds within normal limits. CVS: Capillary refill less than 2 seconds. GI / : The patient has had nausea. Emesis noted. Abdominal tenderness in the right lower quadrant and left lower quadrant. Rebound tenderness in the left upper quadrant. Bowel sounds within normal limits. SKIN: Skin is warm and dry. ( Trace bilat pedal edema). --12:57 Murphy Alonso R.N. NURSING PROGRESS NOTES 12:46. Head of bed elevated. Reassurance given. Two patient identifiers checked. Call light placed in reach. Side rails up x 1. Bed placed in lowest position. Brakes of bed on. Patient ready for evaluation- chart flagged. --13:15 Murphy Alonso R.N. 13:30 03/21/2016 Site #1 started via IV in the right antecubital space with an 18g angiocath, with aseptic technique and good blood return; one attempt. Blood drawn: rainbow set and cultures x1. Labeled in the presence of the patient and sent to the lab. Saline lock flushed with 10 mL saline. --13:36 Murphy Alonso R.N. 13:43 03/21/2016 Started bag #1 1000 mL IV Fluids IV NS (Saline); bolus of 1000 mL over 1 hour(s) via site #1 via IV pump. Allergies verified and confirmed 5 rights. IV patency established. IV site checked: no pain, redness, or swelling. IV flushed thoroughly pre- and post-medication administration. --13:50 Murphy Alonso R.N. 13:43 03/21/2016 Dilaudid (HYDROmorphone HCl PF) IVP 0.5 mg given over 1 minute(s) via site #1. Allergies verified, confirmed 5 rights and sedative warning given to the patient. IV patency established. IV site checked: no pain, redness, or swelling. IV flushed thoroughly pre- and post-medication administration. IVP given by RN. --13:50 Murphy Alonso R.N. 13:45 03/21/2016 Ativan (LORazepam) IVP 0.5 mg given over 1 minute(s) via site #1. Allergies verified, confirmed 5 rights and sedative warning given to the patient. IV patency established. IV site checked: no pain, redness, or swelling. IV flushed thoroughly pre- and post-medication administration. IVP given by RN. --13:51 Murphy Alonso R.N. 13:46 03/21/2016 Toradol IVP 30 mg given over 1 minute(s) via site #1. Allergies verified and confirmed 5 rights. IV patency established. IV site checked: no pain, redness, or swelling. IV flushed thoroughly pre- and post-medication administration. IVP given by RN. --13:52 Murphy Alonso R.N. 13:55 03/21/2016 Dilaudid (HYDROmorphone HCl PF) IVP 0.5 mg given over 1 minute(s) via site #1. Allergies verified, confirmed 5 rights and sedative warning given to the patient. IV patency established. IV site checked: no pain, redness, or swelling. IV flushed thoroughly pre- and post-medication administration. IVP given by RN. --13:57 Murphy Alonso R.N. 13:55 03/21/2016 Dilaudid IVP Response: no adverse reaction pain is improving. --13:57 Murphy Alonso R.N. 13:55 03/21/16. Pain level now: 06/24. Additional comments: After 1st dose of Dilaudid. --13:58 Murphy Alonso R.N. 14:45 03/21/2016 IV Fluids IV NS Discontinued: bag #1 completed. Total amount infused: 1000 mL. IV patency established. IV site checked: no pain, redness, or swelling. IV flushed thoroughly. --14:50 Murphy Alonso R.N. 14:49 03/21/2016 Dilaudid IVP Response: no adverse reaction pain is gone now. Symptoms have improved the patient feels better. --14:49 Murphy Alonso R.N. 14:49 03/21/2016 Ativan IVP Response: no adverse reaction pain is gone now. Symptoms have improved the patient feels better. --14:49 Murphy Alonso R.N. 14:50 03/21/2016 Toradol IVP Response: no adverse reaction pain is gone now. Symptoms have improved the patient feels better. --14:50 Murphy Alonso R.N. 13:00 03/21/16. BP: 156/107. HR: 92. RR: 20. O2 saturation: 96% on room air. Pain level now: 09/24. --15:16 Murphy Alonso R.N. 13:30 03/21/16. BP: 135/107. HR: 89. RR: 20. O2 saturation: 97% on room air. Pain level now: 09/24. --15:16 Murphy Alonso R.N. 14:00 03/21/16. BP: 160/100. HR: 87. RR: 20. O2 saturation: 96% on room air. Pain level now: 06/24. --15:20 Murphy Alonso R.N. 14:30 03/21/16. BP: 151/59. HR: 86. RR: 20. O2 saturation: 97% on room air. Pain level now: 0/10. --15:21 Murphy Alonso R.N. DISPOSITION / DISCHARGE 15:30 03/21/2016 Site #1 removed upon discharge. Bandage applied. --15:30 Murphy Alonso R.N. 15:32 03/21/16. Departure time: 1532. Condition at departure: improved and stable. No learning barriers present. Discharge instructions provided and reviewed with the patient. Reviewed medication(s). Patient verbalized understanding. Written instructions provided in Macedonian. The patient was discharged by the physician. She was discharged home and accompanied by spouse. She left the Emergency Department ambulatory and via private vehicle. Spouse driving. --15:32 Murphy Alonso R.N. 15:29 03/21/16. BP: 150/92. HR: 84. RR: 20. O2 saturation: 98% on room air. Temp: 99.3 F (oral). Pain level now: 0/10. --15:32 Murphy Alonso R.N. Locked/Released at 03/22/2016 7:39 by Murphy Alonso R.N.
--- NOTE | 2016-03-21 15:18 | ED ORDER SUMMARY ---
..... Patient: JESSICA CRAVEN OrderSheet [facility] VisitID: [id number] [address] [place] [address] 65y, F Registration Date/Time: 03/21/2016 ORDER SHEET Weight: 88.4 kg (stated) Allergies: No Known Drug Allergy GENERAL ORDERS: Cardiac Panel Stat (13:12 03/21/2016 Bryce SCHAEFER) (Ack 13:18 TBergley) (13:35 Sammieeck R.N.) Amylase Urgent (13:03/21/2016 Bryce SCHAEFER) (Ack 13:18 TBergley) (13:35 Nemo R.N.) Lipase Urgent (13:03/21/2016 Bryce SCHAEFER) (Ack 13:18 TBergley) (13:35 Sammieeck R.N.) Blood Culture (No) (N/A) Urgent (13:29 03/21/2016 Bryce SCHAEFER) (13:35 Sammieeck R.N.) MEDICATION ORDERS: IV FLUIDS: IV NS : initial bolus 1000 mL (1000 mL/hr), then none - for X1 (NOW); Routine (13:03/21/2016 Bryce SCHAEFER) (13:50 BERNICEimbeck R.N.) Dilaudid IV 0.5 mg (NOW) (Sched q5m for X2); Routine (prn) (Sched q5m for X2) (13:03/21/2016 Bryce SCHAEFER) (13:50 Sammieeck R.N.) Ativan IV 0.5 mg (NOW) (13:11 03/21/2016 Bryce SCHAEFER) (13:51 Nemo R.N.) Toradol IV 30 mg (NOW) (13:12 03/21/2016 Bryce SCHAEFER) (13:52 Nemo R.N.) Dilaudid IV 0.5 mg (NOW) (Sched q5m for X2); Routine (prn) (13:16 03/21/2016 Bryce SCHAEFER) (13:57 BERNICEimbeck R.N.) ORDER SHEET NOTES: [Electronically signed by Murphy Alonso R.N. (07:39 03/22/2016)] [Electronically signed by Ryan Au MD (23:07 03/24/2016)] [Electronically locked/signed by Murphy Alonso R.N. (07:39 03/22/2016)]
--- NOTE | 2016-03-21 15:18 | ED CLINICAL REPORT ---
Clinical Report - Physicians/Mid Levels [facility] [address] [place] [address] 03/21/2016 12:15 Patient: JESSICA CRAVEN Time Seen: 12:29 Mar 21 2016. Arrived- By private vehicle. Historian- patient. CPT: ER phys charges level 4 (#[id number]). HISTORY OF PRESENT ILLNESS Chief Complaint: ABDOMINAL PAIN and VOMITING and NAUSEA. It is described as "pain" and it is described as located in the epigastric area and left upper quadrant. This started about 2 days [employer]YING [employer]IAN; In fentanyl withdrawal and has LUQ pain and is still present. At its maximum, severity described as moderate. When seen in the E.D., severity described as moderate. Modifying factors- worsened by movement. Relieved by rest. The patient has had nausea, loss of appetite and vomiting. No diarrhea. No recent travel. Similar symptoms previously: Diagnosis: pancreatitis. Recent medical care: Not recently seen/assessed. REVIEW OF SYSTEMS No constipation, black stools, hematemesis, difficulty with urination or pain with urination. No urinary frequency, fever, headache, sore throat or blurred vision. No chest pain, difficulty breathing, cough, skin rash or chills. The patient has had joint pain. All systems otherwise negative, except as recorded above. PAST HISTORY Pancreatitis. Renal Insufficiency. Chest Pain. Bipolar Disorder. Anxiety Reaction. Seizure. Hypertension. Hypothyroidism. Contusion. Alcoholism. Alcohol Intoxication. Narcotic Dependence. Suicidal Ideation. Mental Illness. Depression. UTI - Urinary Tract Infection. Cellulitis. Scoliosis. Seizure Disorder. Back Pain. Hematuria. Hyponatremia. Abdominal Pain. Hyperlipidemia. Atypical Chest Pain. Changed Mental Status. Drug Poisoning. Chronic Back Pain. Headache. LNMP - Last Normal Menstrual Period. Migraine Headache. Lifestyle / Substance Problems. Fibromyalgia. Immunizations. --12:35 Murphy Alonso R.N. ADDITIONAL SURGERIES: Rt knee. Medications: Promethazine HCl Oral 25 mg, 2x a day as needed. SEROquel Oral (Tablet 100 mg) 1 tablet, 3x a day. Stool Softener Oral. Triamcinolone Acetonide External (Cream 0.1 %), 2x a day as needed. Venlafaxine HCl ER Oral (Tablet Extended Release 24 Hour 75 mg) 1 tablet, TID. Verapamil HCl Oral (Tablet Extended Release 240 mg), daily. Zofran Oral (RX 02/27/13). FentaNYL Transdermal 75 mcg/hr, every 72 hours. Furosemide Oral (Tablet 20 mg) 1 tablet, daily. Imitrex Oral 50 mg, PRN. LevETIRAcetam Oral (Tablet 1000 mg) 1-1/2 tablets, daily (and at hs take 1 tablet ). Levothyroxine Sodium Oral 150 mcg, daily. LORazepam Oral (Tablet 1 mg) 1 tablet, 3x a day as needed. Nitroglycerin Translingual (Solution 0.4 mg/spray), PRN. Omeprazole Oral 20 mg, daily. Pravastatin Sodium Oral 20 mg, daily. Allergies: No Known Drug Allergy. SOCIAL HISTORY Heavy tobacco smoker (cigarette)- less than 1 pack per day. Alcohol use. History of drug use: marijuana. ADDITIONAL NOTES The nursing notes have been reviewed. PHYSICAL EXAM Vital Signs: 03/21/2016 12:31 BP: 163/108. HR: 91. RR: 20. O2 saturation: 97%. Temp: 99.4 F. Pain level now: 8/10. Appearance: Alert. Anxious. Patient in mild distress. Eyes: Eyes normal inspection. ENT: Pharynx normal. Neck: Normal inspection. CVS: Normal heart rate and rhythm. Heart sounds normal. Pulses normal. Respiratory: No respiratory distress. Breath sounds normal. Chest nontender. Abdomen: Soft. Mild tenderness in the periumbilical area. Bowel sounds normal. Back: Normal inspection. Skin: Skin warm. Normal skin color. No rash. Extremities: Extremities exhibit normal ROM. No lower extremity edema. Neuro: Oriented X 3. No motor deficit. No sensory deficit. Reflexes normal. LABS, X-RAYS, AND EKG Laboratory Tests: CBC w Diff: (ASIYA: 03/21/2016 13:30) ( MsgRcvd 03/21/2016 13:44) Final results Test Result Flag Units (Reference) WHITE BLOOD COUNT 7.3 K/uL (4.5-11.5) RED BLOOD COUNT 4.53 M/uL (4.00-5.20) HEMOGLOBIN 13.8 gm/dL (12.0-16.0) HEMATOCRIT 41.6 % (36.0-46.0) MEAN CELL VOLUME 92 fL (80-100) MEAN CORPUSCULAR HGB 31 pg (26-34) MEAN CORPUSCULAR HGB CONC 33 g/dL (31-37) RED CELL DISTRIBUTION WIDTH 14.7 % (11.6-14.8) PLATELET COUNT 291 K/uL (150-400) NEUTROPHIL % 67.1 % (50-75) LYMPH % 24.3 L % (25-40) MONO % 7.2 % (3-14) EOSINOPHIL % 0.8 % (0-4) BASOPHIL % 0.6 % (0-2) CHEM 13 PANEL: (ASIYA: 03/21/2016 13:30) ( MsgRcvd 03/21/2016 14:05) Final results Test Result Flag Units (Reference) GLUCOSE 103 mg/dL (70-110) BUN 5 L mg/dL (7-18) CREATININE 0.9 mg/dL (0.6-1.3) Estimated GFR >60 mL/min Estimated GFR- >60 mL/min Note: Persistent reduction over 3 months in eGFR<60 mL/min/1.73 m2 defines CKD. Patients with eGFR values>=60 mL/min/1.73 m2 may also have CKD if evidence ofpersistent proteinuria. Additional information may be foundat www.kidney.org. SODIUM 146 H mmol/L (136-145) POTASSIUM 3.7 mmol/L (3.5-5.1) CHLORIDE 105 mmol/L (98-107) CARBON DIOXIDE 26 mmol/L (21-32) CALCIUM 9.8 mg/dL (8.5-10.1) TOTAL PROTEIN 8.6 H g/dL (6.4-8.2) ALBUMIN 4.5 g/dL (3.3-5.0) BILIRUBIN, TOTAL 0.3 mg/dL (0.0-1.0) ALKALINE PHOSPHATASE 124 H U/L (46-116) AST (SGOT) 35 U/L (15-37) ALT (SGPT) 54 U/L (12-78) MAGNESIUM 1.8 mg/dL (1.8-2.4) LIPASE 236 U/L (73-393) AMYLASE 75 U/L (25-115) CPK 43 U/L (24-260) TROPONIN I <0.05 L ng/mL (0.00-1.5) TROPONIN REFERENCE RANGE:<0.1 NEGATIVE0.1-1.5 INDETERMINANT>1.5 POSITIVE . PROGRESS AND PROCEDURES Course of Care: IV NS Dilaudid 0.5 mg IV times 2 Ativan 0.5 mg IV Toradol 30 mg IV Pt having narcotic withdrawal due to being out of meds. Is due to get meds in 2 days. Patient/family counseled. Disposition: Discharged. Condition: stable. CLINICAL IMPRESSION Narcotic withdrawal with secondary gastritis. INSTRUCTIONS Take clear liquids only (frequent sips) for the next 24 hours until better. Advance diet as tolerated. Warnings: Further evaluation is necessary. SEDATIVE MEDICATION: You were given sedative medication during your visit. Do not drive or operate dangerous machinery. GENERAL WARNINGS: Return or contact your physician immediately if your condition worsens or changes unexpectedly, if not improving as expected, or if other problems arise. Your Current Medications: CONTINUE TAKING THE FOLLOWING MEDICATIONS: FentaNYL Transdermal : 75 mcg/hr every 72 hours. Furosemide Oral : Tablet 20 mg, 1 tablet daily. Imitrex Oral : 50 mg PRN. LevETIRAcetam Oral : Tablet 1000 mg, 1-1/2 tablets daily, and at hs take 1 tablet. Levothyroxine Sodium Oral : 150 mcg daily. LORazepam Oral : Tablet 1 mg, 1 tablet 3x a day, prn. Nitroglycerin Translingual : Solution 0.4 mg/spray, PRN. Omeprazole Oral : 20 mg daily. Pravastatin Sodium Oral : 20 mg daily. Promethazine HCl Oral : 25 mg 2x a day, prn. SEROquel Oral : Tablet 100 mg, 1 tablet 3x a day. Stool Softener Oral. Triamcinolone Acetonide External : Cream 0.1 %, 2x a day, prn. Venlafaxine HCl ER Oral : Tablet Extended Release 24 Hour 75 mg, 1 tablet TID. Verapamil HCl Oral : Tablet Extended Release 240 mg, daily. Zofran Oral : RX 02/27/13. Prescription Medications: Zofran (orally disintegrating tablets) 4 mg: take 1 orally every 6 hours as needed for nausea. Dispense ten (10). No refill. Substitution is permissible. Oxycodone/APAP 5 mg/325 mg: take 1-2 tablets orally every 6 hours as needed for pain. Dispense fifteen (15). No refill. Ativan 0.5 mg: take 1-2 orally every 6 hours as needed. Dispense ten (10). No refill. Substitution is permissible. Understanding of the discharge instructions verbalized by patient. Discharge instructions reviewed with and understanding was verbalized by spouse. Follow-up with: Follow up Wednesday in three days as scheduled. (Electronically signed by Ryan Au MD 03/24/2016 23:07)
--- NOTE | 2016-03-24 23:07 | ED MAR SUMMARY ---
..... Medication Administration Record [facility] [address] [place] [address] Patient: JESSICA CRAVEN Visit ID: [id number] 65y, F Weight: 88.4 kg Height/Length: 68 in BMI: 29.6 ALLERGIES: No Known Drug Allergy Start 13:43 03/21/2016 Murphy Alonso R.N., Stop 14:45 03/21/2016 Murphy Alonso R.N. Medication Administered: IV NS (SALINE), Dose: IV Fluids, Bolus: 1000 mL over 1 hour(s), Dispensed: 1000 mL bag, Site: #1 right AC. Medication Ordered: IV NS : initial bolus 1000 mL (1000 mL/hr), then none - for X1 (NOW); Routine. Given 13:43 03/21/2016 Murphy Alonso R.N. Medication Administered: DILAUDID [IVP] (HYDROMORPHONE HCL PF), Dose: 0.5 mg IVP over 1 minute(s), Site: #1 right AC. Medication Ordered: Dilaudid IV 0.5 mg (NOW) (Sched q5m for X2); Routine (prn) 1 of 2. Given 13:45 03/21/2016 Murphy Alonso R.N. Medication Administered: ATIVAN [IVP] (LORAZEPAM), Dose: 0.5 mg IVP over 1 minute(s), Site: #1 right AC. Medication Ordered: Ativan IV 0.5 mg (NOW). Given 13:46 03/21/2016 Murphy Alonso R.N. Medication Administered: TORADOL [IVP], Dose: 30 mg IVP over 1 minute(s), Site: #1 right AC. Medication Ordered: Toradol IV 30 mg (NOW). Given 13:55 03/21/2016 Murphy Alonso R.N. Medication Administered: DILAUDID [IVP] (HYDROMORPHONE HCL PF), Dose: 0.5 mg IVP over 1 minute(s), Site: #1 right AC. Medication Ordered: Dilaudid IV 0.5 mg (NOW) (Sched q5m for X2); Routine (prn) 2 of 2.
--- NOTE | 2016-03-24 23:07 | ED DISCHARGE INSTRUCTIONS ---
Patient: JESSICA CRAVEN General Instructions [facility] VisitID: [id number] [address] [place] [address] 65y, F Registration Date/Time: 03/21/2016 Narcotic withdrawal with secondary gastritis. INSTRUCTIONS Take clear liquids only (frequent sips) for the next 24 hours until better. Advance diet as tolerated. Warnings: Further evaluation is necessary. SEDATIVE MEDICATION: You were given sedative medication during your visit. Do not drive or operate dangerous machinery. GENERAL WARNINGS: Return or contact your physician immediately if your condition worsens or changes unexpectedly, if not improving as expected, or if other problems arise. Your Current Medications: CONTINUE TAKING THE FOLLOWING MEDICATIONS: FentaNYL Transdermal : 75 mcg/hr every 72 hours. Furosemide Oral : Tablet 20 mg, 1 tablet daily. Imitrex Oral : 50 mg PRN. LevETIRAcetam Oral : Tablet 1000 mg, 1-1/2 tablets daily, and at hs take 1 tablet. Levothyroxine Sodium Oral : 150 mcg daily. LORazepam Oral : Tablet 1 mg, 1 tablet 3x a day, prn. Nitroglycerin Translingual : Solution 0.4 mg/spray, PRN. Omeprazole Oral : 20 mg daily. Pravastatin Sodium Oral : 20 mg daily. Promethazine HCl Oral : 25 mg 2x a day, prn. SEROquel Oral : Tablet 100 mg, 1 tablet 3x a day. Stool Softener Oral. Triamcinolone Acetonide External : Cream 0.1 %, 2x a day, prn. Venlafaxine HCl ER Oral : Tablet Extended Release 24 Hour 75 mg, 1 tablet TID. Verapamil HCl Oral : Tablet Extended Release 240 mg, daily. Zofran Oral : RX 02/27/13. Prescription Medications: Zofran (orally disintegrating tablets) 4 mg: take 1 orally every 6 hours as needed for nausea. Dispense ten (10). No refill. Substitution is permissible. Oxycodone/APAP 5 mg/325 mg: take 1-2 tablets orally every 6 hours as needed for pain. Dispense fifteen (15). No refill. Ativan 0.5 mg: take 1-2 orally every 6 hours as needed. Dispense ten (10). No refill. Substitution is permissible. Understanding of the discharge instructions verbalized by patient. Discharge instructions reviewed with and understanding was verbalized by spouse. Follow-up with: Follow up Wednesday in three days as scheduled. ADDITIONAL INFORMATION Clear Liquid Diet Clear liquids are any liquid that you can see through as well as those that are very easy to digest. This is used while the body is recovering from irritation or infection of the stomach or intestinal tract. It may also be used before special procedures or surgery. This diet is to be used no more than three days. You may include the following items. Adults Adults should drink a total of 23 quarts of liquid per day. It may be easier to drink small frequent servings rather than a few large ones. Liquids can include: Fruit juices.Strained orange juice or lemonade (no pulp), apple, grape and cranberry juice, clear fruit drinks, sports drinks Beverages.Sport drinks, sodas, mineral water (plain or flavored), tea, black coffee, liquid gelatin (add twice the recommended amount of water) Soups.Clear broth, consomm, bouillon Desserts.Plain gelatin, popsicles, fruit juice bars Children Over 2 years old The following liquids are acceptable for children over age 2: Fruit juices.Strained orange juice or lemonade (no pulp), apple, grape and cranberry juice, clear fruit drinks Beverages. Sports drinks, sodas, mineral water (plain or flavored), tea, liquid gelatin (add twice the recommended amount of water) Soups. Clear broth, consomm, bouillon Desserts. Plain gelatin, popsicles, fruit juice bars Children under 2 years old Oral rehydration fluids such are available at drug stores and most grocery stores without a prescription. Ondansetron Oral disintegrating tablet What is this medicine? ONDANSETRON (on NORMA se dominique) is used to treat nausea and vomiting caused by chemotherapy. It is also used to prevent or treat nausea and vomiting after surgery. How should I use this medicine? These tablets are made to dissolve in the mouth. Do not try to push the tablet through the foil backing. With dry hands, peel away the foil backing and gently remove the tablet. Place the tablet in the mouth and allow it to dissolve, then swallow. While you may take these tablets with water, it is not necessary to do so. Talk to your equine manager regarding the use of this medicine in children. Special care may be needed. What side effects may I notice from receiving this medicine? Side effects that you should report to your doctor or health respiratory care practitioner as soon as possible: allergic reactions like skin rash, itching or hives, swelling of the face, lips, or tongue breathing problems dizziness fast or irregular heartbeat feeling faint or lightheaded, falls fever and chills swelling of the hands and feet tightness in the chest Side effects that usually do not require medical attention (report to your doctor or health respiratory care practitioner if they continue or are bothersome): constipation or diarrhea headache What may interact with this medicine? Do not take this medicine with any of the following medications: -apomorphine -cisapride -dofetilide -dronedarone -pimozide -thioridazine -ziprasidone This medicine may also interact with the following medications: -carbamazepine -phenytoin -rifampicin -tramadol -other medicines that prolong the QT interval (cause an abnormal heart rhythm) What if I miss a dose? If you miss a dose, take it as soon as you can. If it is almost time for your next dose, take only that dose. Do not take double or extra doses. Where should I keep my medicine? Keep out of the reach of children. Store between 2 and 30 degrees C (36 and 86 degrees F). Throw away any unused medicine after the expiration date. What should I tell my health care provider before I take this medicine? They need to know if you have any of these conditions: heart disease history of irregular heartbeat liver disease low levels of magnesium or potassium in the blood an unusual or allergic reaction to ondansetron, granisetron, other medicines, foods, dyes, or preservatives or trying to get breast-feeding What should I watch for while using this medicine? Check with your doctor or health respiratory care practitioner as soon as you can if you have any sign of an allergic reaction. Oxycodone Hydrochloride, Acetaminophen Oral tablet What is this medicine? ACETAMINOPHEN; OXYCODONE (a set a JACQUES dayami fen; ox i KOE done) is a pain reliever. It is used to treat mild to moderate pain. How should I use this medicine? Take this medicine by mouth with a full glass of water. Follow the directions on the prescription label. Take your medicine at regular intervals. Do not take your medicine more often than directed. Talk to your equine manager regarding the use of this medicine in children. Special care may be needed. Patients over 65 years old may have a stronger reaction and need a smaller dose. What side effects may I notice from receiving this medicine? Side effects that you should report to your doctor or health respiratory care practitioner as soon as possible: allergic reactions like skin rash, itching or hives, swelling of the face, lips, or tongue breathing difficulties, wheezing confusion light headedness or fainting spells severe stomach pain yellowing of the skin or the whites of the eyes Side effects that usually do not require medical attention (report to your doctor or health respiratory care practitioner if they continue or are bothersome): dizziness drowsiness nausea vomiting What may interact with this medicine? alcohol antihistamines barbiturates like amobarbital, butalbital, butabarbital, methohexital, pentobarbital, phenobarbital, thiopental, and secobarbital benztropine drugs for bladder problems like solifenacin, trospium, oxybutynin, tolterodine, hyoscyamine, and methscopolamine drugs for breathing problems like ipratropium and tiotropium drugs for certain stomach or intestine problems like propantheline, homatropine methylbromide, glycopyrrolate, atropine, belladonna, and dicyclomine general anesthetics like etomidate, ketamine, nitrous oxide, propofol, desflurane, enflurane, halothane, isoflurane, and sevoflurane medicines for depression, anxiety, or psychotic disturbances medicines for sleep muscle relaxants naltrexone narcotic medicines (opiates) for pain phenothiazines like perphenazine, thioridazine, chlorpromazine, mesoridazine, fluphenazine, prochlorperazine, promazine, and trifluoperazine scopolamine tramadol trihexyphenidyl What if I miss a dose? If you miss a dose, take it as soon as you can. If it is almost time for your next dose, take only that dose. Do not take double or extra doses. Where should I keep my medicine? Keep out of the reach of children. This medicine can be abused. Keep your medicine in a safe place to protect it from theft. Do not share this medicine with anyone. Selling or giving away this medicine is dangerous and against the law. Store at room temperature between 20 and 25 degrees C (68 and 77 degrees F). Keep container tightly closed. Protect from light. This medicine may cause accidental overdose and if it is taken by other adults, children, or pets. Flush any unused medicine down the toilet to reduce the chance of harm. Do not use the medicine after the expiration date. What should I tell my health care provider before I take this medicine? They need to know if you have any of these conditions: brain tumor Crohn's disease, inflammatory bowel disease, or ulcerative colitis drink more than 3 alcohol containing drinks per day drug abuse or addiction head injury heart or circulation problems kidney disease or problems going to the bathroom liver disease lung disease, asthma, or breathing problems an unusual or allergic reaction to acetaminophen, oxycodone, other opioid analgesics, other medicines, foods, dyes, or preservatives or trying to get breast-feeding What should I watch for while using this medicine? Tell your doctor or health respiratory care practitioner if your pain does not go away, if it gets worse, or if you have new or a different type of pain. You may develop tolerance to the medicine. Tolerance means that you will need a higher dose of the medication for pain relief. Tolerance is normal and is expected if you take this medicine for a long time. Do not suddenly stop taking your medicine because you may develop a severe reaction. Your body becomes used to the medicine. This does NOT mean you are addicted. Addiction is a behavior related to getting and using a drug for a non-medical reason. If you have pain, you have a medical reason to take pain medicine. Your doctor will tell you how much medicine to take. If your doctor wants you to stop the medicine, the dose will be slowly lowered over time to avoid any side effects. You may get drowsy or dizzy. Do not drive, use machinery, or do anything that needs mental alertness until you know how this medicine affects you. Do not stand or sit up quickly, especially if you are an older patient. This reduces the risk of dizzy or fainting spells. Alcohol may interfere with the effect of this medicine. Avoid alcoholic drinks. There are different types of narcotic medicines (opiates) for pain. If you take more than one type at the same time, you may have more side effects. Give your health care provider a list of all medicines you use. Your doctor will tell you how much medicine to take. Do not take more medicine than directed. Call emergency for help if you have problems breathing. The medicine will cause constipation. Try to have a bowel movement at least every 2 to 3 days. If you do not have a bowel movement for 3 days, call your doctor or health respiratory care practitioner. Do not take Tylenol (acetaminophen) or medicines that have acetaminophen with this medicine. Too much acetaminophen can be very dangerous. Many nonprescription medicines contain acetaminophen. Always read the labels carefully to avoid taking more acetaminophen. Lorazepam Oral tablet What is this medicine? LORAZEPAM (ch[place] A ze boom) is a benzodiazepine. It is used to treat anxiety. How should I use this medicine? Take this medicine by mouth with a glass of water. Follow the directions on the prescription label. If it upsets your stomach, take it with food or milk. Take your medicine at regular intervals. Do not take it more often than directed. Do not stop taking except on the advice of your doctor or health respiratory care practitioner. Talk to your equine manager regarding the use of this medicine in children. Special care may be needed. What side effects may I notice from receiving this medicine? Side effects that you should report to your doctor or health respiratory care practitioner as soon as possible: changes in vision confusion depression mood changes, excitability or aggressive behavior movement difficulty, staggering or jerky movements muscle cramps restlessness weakness or tiredness Side effects that usually do not require medical attention (report to your doctor or health respiratory care practitioner if they continue or are bothersome): constipation or diarrhea difficulty sleeping, nightmares dizziness, drowsiness headache nausea, vomiting What may interact with this medicine? barbiturate medicines for inducing sleep or treating seizures, like phenobarbital clozapine medicines for depression, mental problems or psychiatric disturbances medicines for sleep phenytoin probenecid theophylline valproic acid What if I miss a dose? If you miss a dose, take it as soon as you can. If it is almost time for your next dose, take only that dose. Do not take double or extra doses. Where should I keep my medicine? Keep out of the reach of children. This medicine can be abused. Keep your medicine in a safe place to protect it from theft. Do not share this medicine with anyone. Selling or giving away this medicine is dangerous and against the law. Store at room temperature between 20 and 25 degrees C (68 and 77 degrees F). Protect from light. Keep container tightly closed. Throw away any unused medicine after the expiration date. What should I tell my health care provider before I take this medicine? They need to know if you have any of these conditions: alcohol or drug abuse problem bipolar disorder, depression, psychosis or other mental health condition glaucoma kidney or liver disease lung disease or breathing difficulties myasthenia gravis Parkinson's disease seizures or a history of seizures suicidal thoughts an unusual or allergic reaction to lorazepam, other benzodiazepines, foods, dyes, or preservatives or trying to get breast-feeding What should I watch for while using this medicine? Visit your doctor or health respiratory care practitioner for regular checks on your progress. Your body may become dependent on this medicine, ask your doctor or health respiratory care practitioner if you still need to take it. However, if you have been taking this medicine regularly for some time, do not suddenly stop taking it. You must gradually reduce the dose or you may get severe side effects. Ask your doctor or health respiratory care practitioner for advice before increasing or decreasing the dose. Even after you stop taking this medicine it can still affect your body for several days. You may get drowsy or dizzy. Do not drive, use machinery, or do anything that needs mental alertness until you know how this medicine affects you. To reduce the risk of dizzy and fainting spells, do not stand or sit up quickly, especially if you are an older patient. Alcohol may increase dizziness and drowsiness. Avoid alcoholic drinks. Do not treat yourself for coughs, colds or allergies without asking your doctor or health respiratory care practitioner for advice. Some ingredients can increase possible side effects. You have been given the following additional information: Diet, Clear Liquid Ondansetron Oral disintegrating tablet Oxycodone Hydrochloride, Acetaminophen Oral tablet Lorazepam Oral tablet (Electronically signed by Ryan Au MD 03/24/2016 23:07)
--- NOTE | 2016-03-24 23:07 | ED MED RECONCILIATION SUMMARY ---
Patient: JESSICA CRAVEN Medication Reconciliation Report [facility] VisitID: [id number] [address] [place] [address] 65y, F Registration Date/Time: 03/21/2016 Weight: 88.4 kg Height/Length: 68 in. BMI: 29.6 ALLERGIES: No Known Drug Allergy The patient's Home Medications are listed below: CONTINUE TAKING THE FOLLOWING MEDICATIONS: FentaNYL Transdermal 75 mcg/hr, every 72 hours Furosemide Oral (20 mg) 1 tablet, daily Imitrex Oral 50 mg, PRN LevETIRAcetam Oral (1000 mg) 1-1/2 tablets, daily, and at hs take 1 tablet Levothyroxine Sodium Oral 150 mcg, daily LORazepam Oral (1 mg) 1 tablet, 3x a day Nitroglycerin Translingual (0.4 mg/spray), PRN Omeprazole Oral 20 mg, daily Pravastatin Sodium Oral 20 mg, daily Promethazine HCl Oral 25 mg, 2x a day SEROquel Oral (100 mg) 1 tablet, 3x a day Stool Softener Oral Triamcinolone Acetonide External (0.1 %), 2x a day Venlafaxine HCl ER Oral (75 mg) 1 tablet, TID Verapamil HCl Oral (240 mg), daily Zofran Oral, RX 02/27/13 The source(s) of the original Home Medication information: Not obtained. The following Medications were given to the patient in the Emergency Department: IV NS IV Fluids bolus 1000 mL over 1 hour(s), administered: 03/21/2016 1:43:00 PM Dilaudid [IVP] IVP 0.5 mg, administered: 03/21/2016 1:43:00 PM Ativan [IVP] IVP 0.5 mg, administered: 03/21/2016 1:45:00 PM Toradol [IVP] IVP 30 mg, administered: 03/21/2016 1:46:00 PM Dilaudid [IVP] IVP 0.5 mg, administered: 03/21/2016 1:55:00 PM The following Medications were prescribed to the patient: Zofran (orally disintegrating tablets) 4 mg: take 1 orally every 6 hours as needed for nausea. Dispense ten (10). No refill. Substitution is permissible. -- Ryan Au MD Oxycodone/APAP 5 mg/325 mg: take 1-2 tablets orally every 6 hours as needed for pain. Dispense fifteen (15). No refill. -- Ryan Au MD Ativan 0.5 mg: take 1-2 orally every 6 hours as needed. Dispense ten (10). No refill. Substitution is permissible. -- Ryan Au MD
--- NOTE | 2016-03-24 23:07 | ED MED RECONCILIATION SUMMARY ---
Patient: JESSICA CRAVEN Medication Reconciliation Report [facility] VisitID: [id number] [address] [place] [address] 65y, F Registration Date/Time: 03/21/2016 Weight: 88.4 kg Height/Length: 68 in. BMI: 29.6 ALLERGIES: No Known Drug Allergy The patient's Home Medications are listed below: CONTINUE TAKING THE FOLLOWING MEDICATIONS: FentaNYL Transdermal 75 mcg/hr, every 72 hours Furosemide Oral (20 mg) 1 tablet, daily Imitrex Oral 50 mg, PRN LevETIRAcetam Oral (1000 mg) 1-1/2 tablets, daily, and at hs take 1 tablet Levothyroxine Sodium Oral 150 mcg, daily LORazepam Oral (1 mg) 1 tablet, 3x a day Nitroglycerin Translingual (0.4 mg/spray), PRN Omeprazole Oral 20 mg, daily Pravastatin Sodium Oral 20 mg, daily Promethazine HCl Oral 25 mg, 2x a day SEROquel Oral (100 mg) 1 tablet, 3x a day Stool Softener Oral Triamcinolone Acetonide External (0.1 %), 2x a day Venlafaxine HCl ER Oral (75 mg) 1 tablet, TID Verapamil HCl Oral (240 mg), daily Zofran Oral, RX 02/27/13 The source(s) of the original Home Medication information: Not obtained. The following Medications were given to the patient in the Emergency Department: IV NS IV Fluids bolus 1000 mL over 1 hour(s), administered: 03/21/2016 1:43:00 PM Dilaudid [IVP] IVP 0.5 mg, administered: 03/21/2016 1:43:00 PM Ativan [IVP] IVP 0.5 mg, administered: 03/21/2016 1:45:00 PM Toradol [IVP] IVP 30 mg, administered: 03/21/2016 1:46:00 PM Dilaudid [IVP] IVP 0.5 mg, administered: 03/21/2016 1:55:00 PM The following Medications were prescribed to the patient: Zofran (orally disintegrating tablets) 4 mg: take 1 orally every 6 hours as needed for nausea. Dispense ten (10). No refill. Substitution is permissible. -- Ryan Au MD Oxycodone/APAP 5 mg/325 mg: take 1-2 tablets orally every 6 hours as needed for pain. Dispense fifteen (15). No refill. -- Ryan Au MD Ativan 0.5 mg: take 1-2 orally every 6 hours as needed. Dispense ten (10). No refill. Substitution is permissible. -- Ryan Au MD
--- NOTE | 2016-03-24 23:07 | ED DISCHARGE INSTRUCTIONS ---
Patient: JESSICA CRAVEN General Instructions [facility] VisitID: [id number] [address] [place] [address] 65y, F Registration Date/Time: 03/21/2016 Narcotic withdrawal with secondary gastritis. INSTRUCTIONS Take clear liquids only (frequent sips) for the next 24 hours until better. Advance diet as tolerated. Warnings: Further evaluation is necessary. SEDATIVE MEDICATION: You were given sedative medication during your visit. Do not drive or operate dangerous machinery. GENERAL WARNINGS: Return or contact your physician immediately if your condition worsens or changes unexpectedly, if not improving as expected, or if other problems arise. Your Current Medications: CONTINUE TAKING THE FOLLOWING MEDICATIONS: FentaNYL Transdermal : 75 mcg/hr every 72 hours. Furosemide Oral : Tablet 20 mg, 1 tablet daily. Imitrex Oral : 50 mg PRN. LevETIRAcetam Oral : Tablet 1000 mg, 1-1/2 tablets daily, and at hs take 1 tablet. Levothyroxine Sodium Oral : 150 mcg daily. LORazepam Oral : Tablet 1 mg, 1 tablet 3x a day, prn. Nitroglycerin Translingual : Solution 0.4 mg/spray, PRN. Omeprazole Oral : 20 mg daily. Pravastatin Sodium Oral : 20 mg daily. Promethazine HCl Oral : 25 mg 2x a day, prn. SEROquel Oral : Tablet 100 mg, 1 tablet 3x a day. Stool Softener Oral. Triamcinolone Acetonide External : Cream 0.1 %, 2x a day, prn. Venlafaxine HCl ER Oral : Tablet Extended Release 24 Hour 75 mg, 1 tablet TID. Verapamil HCl Oral : Tablet Extended Release 240 mg, daily. Zofran Oral : RX 02/27/13. Prescription Medications: Zofran (orally disintegrating tablets) 4 mg: take 1 orally every 6 hours as needed for nausea. Dispense ten (10). No refill. Substitution is permissible. Oxycodone/APAP 5 mg/325 mg: take 1-2 tablets orally every 6 hours as needed for pain. Dispense fifteen (15). No refill. Ativan 0.5 mg: take 1-2 orally every 6 hours as needed. Dispense ten (10). No refill. Substitution is permissible. Understanding of the discharge instructions verbalized by patient. Discharge instructions reviewed with and understanding was verbalized by spouse. Follow-up with: Follow up Wednesday in three days as scheduled. ADDITIONAL INFORMATION Clear Liquid Diet Clear liquids are any liquid that you can see through as well as those that are very easy to digest. This is used while the body is recovering from irritation or infection of the stomach or intestinal tract. It may also be used before special procedures or surgery. This diet is to be used no more than three days. You may include the following items. Adults Adults should drink a total of 23 quarts of liquid per day. It may be easier to drink small frequent servings rather than a few large ones. Liquids can include: Fruit juices.Strained orange juice or lemonade (no pulp), apple, grape and cranberry juice, clear fruit drinks, sports drinks Beverages.Sport drinks, sodas, mineral water (plain or flavored), tea, black coffee, liquid gelatin (add twice the recommended amount of water) Soups.Clear broth, consomm, bouillon Desserts.Plain gelatin, popsicles, fruit juice bars Children Over 2 years old The following liquids are acceptable for children over age 2: Fruit juices.Strained orange juice or lemonade (no pulp), apple, grape and cranberry juice, clear fruit drinks Beverages. Sports drinks, sodas, mineral water (plain or flavored), tea, liquid gelatin (add twice the recommended amount of water) Soups. Clear broth, consomm, bouillon Desserts. Plain gelatin, popsicles, fruit juice bars Children under 2 years old Oral rehydration fluids such are available at drug stores and most grocery stores without a prescription. Ondansetron Oral disintegrating tablet What is this medicine? ONDANSETRON (on NORMA se dominique) is used to treat nausea and vomiting caused by chemotherapy. It is also used to prevent or treat nausea and vomiting after surgery. How should I use this medicine? These tablets are made to dissolve in the mouth. Do not try to push the tablet through the foil backing. With dry hands, peel away the foil backing and gently remove the tablet. Place the tablet in the mouth and allow it to dissolve, then swallow. While you may take these tablets with water, it is not necessary to do so. Talk to your golf club assembler regarding the use of this medicine in children. Special care may be needed. What side effects may I notice from receiving this medicine? Side effects that you should report to your doctor or health summer child caregiver as soon as possible: allergic reactions like skin rash, itching or hives, swelling of the face, lips, or tongue breathing problems dizziness fast or irregular heartbeat feeling faint or lightheaded, falls fever and chills swelling of the hands and feet tightness in the chest Side effects that usually do not require medical attention (report to your doctor or health summer child caregiver if they continue or are bothersome): constipation or diarrhea headache What may interact with this medicine? Do not take this medicine with any of the following medications: -apomorphine -cisapride -dofetilide -dronedarone -pimozide -thioridazine -ziprasidone This medicine may also interact with the following medications: -carbamazepine -phenytoin -rifampicin -tramadol -other medicines that prolong the QT interval (cause an abnormal heart rhythm) What if I miss a dose? If you miss a dose, take it as soon as you can. If it is almost time for your next dose, take only that dose. Do not take double or extra doses. Where should I keep my medicine? Keep out of the reach of children. Store between 2 and 30 degrees C (36 and 86 degrees F). Throw away any unused medicine after the expiration date. What should I tell my health care provider before I take this medicine? They need to know if you have any of these conditions: heart disease history of irregular heartbeat liver disease low levels of magnesium or potassium in the blood an unusual or allergic reaction to ondansetron, granisetron, other medicines, foods, dyes, or preservatives or trying to get breast-feeding What should I watch for while using this medicine? Check with your doctor or health summer child caregiver as soon as you can if you have any sign of an allergic reaction. Oxycodone Hydrochloride, Acetaminophen Oral tablet What is this medicine? ACETAMINOPHEN; OXYCODONE (a set a JACQUES dayami fen; ox i KOE done) is a pain reliever. It is used to treat mild to moderate pain. How should I use this medicine? Take this medicine by mouth with a full glass of water. Follow the directions on the prescription label. Take your medicine at regular intervals. Do not take your medicine more often than directed. Talk to your golf club assembler regarding the use of this medicine in children. Special care may be needed. Patients over 65 years old may have a stronger reaction and need a smaller dose. What side effects may I notice from receiving this medicine? Side effects that you should report to your doctor or health summer child caregiver as soon as possible: allergic reactions like skin rash, itching or hives, swelling of the face, lips, or tongue breathing difficulties, wheezing confusion light headedness or fainting spells severe stomach pain yellowing of the skin or the whites of the eyes Side effects that usually do not require medical attention (report to your doctor or health summer child caregiver if they continue or are bothersome): dizziness drowsiness nausea vomiting What may interact with this medicine? alcohol antihistamines barbiturates like amobarbital, butalbital, butabarbital, methohexital, pentobarbital, phenobarbital, thiopental, and secobarbital benztropine drugs for bladder problems like solifenacin, trospium, oxybutynin, tolterodine, hyoscyamine, and methscopolamine drugs for breathing problems like ipratropium and tiotropium drugs for certain stomach or intestine problems like propantheline, homatropine methylbromide, glycopyrrolate, atropine, belladonna, and dicyclomine general anesthetics like etomidate, ketamine, nitrous oxide, propofol, desflurane, enflurane, halothane, isoflurane, and sevoflurane medicines for depression, anxiety, or psychotic disturbances medicines for sleep muscle relaxants naltrexone narcotic medicines (opiates) for pain phenothiazines like perphenazine, thioridazine, chlorpromazine, mesoridazine, fluphenazine, prochlorperazine, promazine, and trifluoperazine scopolamine tramadol trihexyphenidyl What if I miss a dose? If you miss a dose, take it as soon as you can. If it is almost time for your next dose, take only that dose. Do not take double or extra doses. Where should I keep my medicine? Keep out of the reach of children. This medicine can be abused. Keep your medicine in a safe place to protect it from theft. Do not share this medicine with anyone. Selling or giving away this medicine is dangerous and against the law. Store at room temperature between 20 and 25 degrees C (68 and 77 degrees F). Keep container tightly closed. Protect from light. This medicine may cause accidental overdose and if it is taken by other adults, children, or pets. Flush any unused medicine down the toilet to reduce the chance of harm. Do not use the medicine after the expiration date. What should I tell my health care provider before I take this medicine? They need to know if you have any of these conditions: brain tumor Crohn's disease, inflammatory bowel disease, or ulcerative colitis drink more than 3 alcohol containing drinks per day drug abuse or addiction head injury heart or circulation problems kidney disease or problems going to the bathroom liver disease lung disease, asthma, or breathing problems an unusual or allergic reaction to acetaminophen, oxycodone, other opioid analgesics, other medicines, foods, dyes, or preservatives or trying to get breast-feeding What should I watch for while using this medicine? Tell your doctor or health summer child caregiver if your pain does not go away, if it gets worse, or if you have new or a different type of pain. You may develop tolerance to the medicine. Tolerance means that you will need a higher dose of the medication for pain relief. Tolerance is normal and is expected if you take this medicine for a long time. Do not suddenly stop taking your medicine because you may develop a severe reaction. Your body becomes used to the medicine. This does NOT mean you are addicted. Addiction is a behavior related to getting and using a drug for a non-medical reason. If you have pain, you have a medical reason to take pain medicine. Your doctor will tell you how much medicine to take. If your doctor wants you to stop the medicine, the dose will be slowly lowered over time to avoid any side effects. You may get drowsy or dizzy. Do not drive, use machinery, or do anything that needs mental alertness until you know how this medicine affects you. Do not stand or sit up quickly, especially if you are an older patient. This reduces the risk of dizzy or fainting spells. Alcohol may interfere with the effect of this medicine. Avoid alcoholic drinks. There are different types of narcotic medicines (opiates) for pain. If you take more than one type at the same time, you may have more side effects. Give your health care provider a list of all medicines you use. Your doctor will tell you how much medicine to take. Do not take more medicine than directed. Call emergency for help if you have problems breathing. The medicine will cause constipation. Try to have a bowel movement at least every 2 to 3 days. If you do not have a bowel movement for 3 days, call your doctor or health summer child caregiver. Do not take Tylenol (acetaminophen) or medicines that have acetaminophen with this medicine. Too much acetaminophen can be very dangerous. Many nonprescription medicines contain acetaminophen. Always read the labels carefully to avoid taking more acetaminophen. Lorazepam Oral tablet What is this medicine? LORAZEPAM (ch[place] A ze boom) is a benzodiazepine. It is used to treat anxiety. How should I use this medicine? Take this medicine by mouth with a glass of water. Follow the directions on the prescription label. If it upsets your stomach, take it with food or milk. Take your medicine at regular intervals. Do not take it more often than directed. Do not stop taking except on the advice of your doctor or health summer child caregiver. Talk to your golf club assembler regarding the use of this medicine in children. Special care may be needed. What side effects may I notice from receiving this medicine? Side effects that you should report to your doctor or health summer child caregiver as soon as possible: changes in vision confusion depression mood changes, excitability or aggressive behavior movement difficulty, staggering or jerky movements muscle cramps restlessness weakness or tiredness Side effects that usually do not require medical attention (report to your doctor or health summer child caregiver if they continue or are bothersome): constipation or diarrhea difficulty sleeping, nightmares dizziness, drowsiness headache nausea, vomiting What may interact with this medicine? barbiturate medicines for inducing sleep or treating seizures, like phenobarbital clozapine medicines for depression, mental problems or psychiatric disturbances medicines for sleep phenytoin probenecid theophylline valproic acid What if I miss a dose? If you miss a dose, take it as soon as you can. If it is almost time for your next dose, take only that dose. Do not take double or extra doses. Where should I keep my medicine? Keep out of the reach of children. This medicine can be abused. Keep your medicine in a safe place to protect it from theft. Do not share this medicine with anyone. Selling or giving away this medicine is dangerous and against the law. Store at room temperature between 20 and 25 degrees C (68 and 77 degrees F). Protect from light. Keep container tightly closed. Throw away any unused medicine after the expiration date. What should I tell my health care provider before I take this medicine? They need to know if you have any of these conditions: alcohol or drug abuse problem bipolar disorder, depression, psychosis or other mental health condition glaucoma kidney or liver disease lung disease or breathing difficulties myasthenia gravis Parkinson's disease seizures or a history of seizures suicidal thoughts an unusual or allergic reaction to lorazepam, other benzodiazepines, foods, dyes, or preservatives or trying to get breast-feeding What should I watch for while using this medicine? Visit your doctor or health summer child caregiver for regular checks on your progress. Your body may become dependent on this medicine, ask your doctor or health summer child caregiver if you still need to take it. However, if you have been taking this medicine regularly for some time, do not suddenly stop taking it. You must gradually reduce the dose or you may get severe side effects. Ask your doctor or health summer child caregiver for advice before increasing or decreasing the dose. Even after you stop taking this medicine it can still affect your body for several days. You may get drowsy or dizzy. Do not drive, use machinery, or do anything that needs mental alertness until you know how this medicine affects you. To reduce the risk of dizzy and fainting spells, do not stand or sit up quickly, especially if you are an older patient. Alcohol may increase dizziness and drowsiness. Avoid alcoholic drinks. Do not treat yourself for coughs, colds or allergies without asking your doctor or health summer child caregiver for advice. Some ingredients can increase possible side effects. You have been given the following additional information: Diet, Clear Liquid Ondansetron Oral disintegrating tablet Oxycodone Hydrochloride, Acetaminophen Oral tablet Lorazepam Oral tablet (Electronically signed by Ryan Au MD 03/24/2016 23:07)
--- NOTE | 2016-03-24 23:07 | ED MAR SUMMARY ---
..... Medication Administration Record [facility] [address] [place] [address] Patient: JESSICA CRAVEN Visit ID: [id number] 65y, F Weight: 88.4 kg Height/Length: 68 in BMI: 29.6 ALLERGIES: No Known Drug Allergy Start 13:43 03/21/2016 Murphy Alonso R.N., Stop 14:45 03/21/2016 Murphy Alonso R.N. Medication Administered: IV NS (SALINE), Dose: IV Fluids, Bolus: 1000 mL over 1 hour(s), Dispensed: 1000 mL bag, Site: #1 right AC. Medication Ordered: IV NS : initial bolus 1000 mL (1000 mL/hr), then none - for X1 (NOW); Routine. Given 13:43 03/21/2016 Murphy Alonso R.N. Medication Administered: DILAUDID [IVP] (HYDROMORPHONE HCL PF), Dose: 0.5 mg IVP over 1 minute(s), Site: #1 right AC. Medication Ordered: Dilaudid IV 0.5 mg (NOW) (Sched q5m for X2); Routine (prn) 1 of 2. Given 13:45 03/21/2016 Murphy Alonso R.N. Medication Administered: ATIVAN [IVP] (LORAZEPAM), Dose: 0.5 mg IVP over 1 minute(s), Site: #1 right AC. Medication Ordered: Ativan IV 0.5 mg (NOW). Given 13:46 03/21/2016 Murphy Alonso R.N. Medication Administered: TORADOL [IVP], Dose: 30 mg IVP over 1 minute(s), Site: #1 right AC. Medication Ordered: Toradol IV 30 mg (NOW). Given 13:55 03/21/2016 Murphy Alonso R.N. Medication Administered: DILAUDID [IVP] (HYDROMORPHONE HCL PF), Dose: 0.5 mg IVP over 1 minute(s), Site: #1 right AC. Medication Ordered: Dilaudid IV 0.5 mg (NOW) (Sched q5m for X2); Routine (prn) 2 of 2.
== END 2016-03-21 15:32 | disposition home or self-care (01) ==
LOC: ED SRH 12:14
DX: F11.23 Opioid dependence with withdrawal (principal); K29.70 Gastritis, unspecified, without bleeding; I10 Essential (primary) hypertension; E03.9 Hypothyroidism, unspecified; Z79.899 Other long term (current) drug therapy
CPT/HCPCS: 90065; 90100; 90616; 92235; 92530; 92610; 92720; 95059

== ENCOUNTER 2016-08-08 20:18 | Observation (INO) | payer OTHER ==
[~2016-08-08] VITALS: Ht 167.6 cm; Wt 87.1 kg
--- NOTE | 2016-08-08 22:09 | DIAGNOSTIC IMAGING REPORT ---
PROCEDURE: XR CHEST 1 VIEW INDICATION: ALTERED MENTAL STATUS TECHNIQUE: Portable AP view 09:45 p.m. COMPARISON: Chest x-ray 02/26/2016. FINDINGS: Poor inspiration with mild left basilar atelectasis. Heart and mediastinum are normal. Thorax is normal. IMPRESSION: 1. Poor inspiration with mild left basilar atelectasis
--- NOTE | 2016-08-08 22:09 | DIAGNOSTIC IMAGING REPORT ---
PROCEDURE: CT HEAD WITHOUT CONTRAST INDICATION: MENTAL STATUS CHANGE TECHNIQUE: Noncontrast axial images with sagittal and coronal reformations. COMPARISON: None. FINDINGS: Mild cortical atrophy. Ventricular system, and brain parenchyma are normal. Dystrophic calcifications of the basal ganglia. No evidence of acute intracranial process. Visualized mastoids and sinuses are clear. IMPRESSION: 1. No acute intracranial abnormality 2. Mild atrophy 3. Findings discussed with Dr. Rajan at 10:04 p.m.[facility] Standard Time
--- NOTE | 2016-08-08 22:09 | DIAGNOSTIC IMAGING REPORT ---
PROCEDURE: CT HEAD WITHOUT CONTRAST INDICATION: MENTAL STATUS CHANGE TECHNIQUE: Noncontrast axial images with sagittal and coronal reformations. COMPARISON: None. FINDINGS: Mild cortical atrophy. Ventricular system, and brain parenchyma are normal. Dystrophic calcifications of the basal ganglia. No evidence of acute intracranial process. Visualized mastoids and sinuses are clear. IMPRESSION: 1. No acute intracranial abnormality 2. Mild atrophy 3. Findings discussed with Dr. Rajan at 10:04 p.m.[facility] Standard Time
--- NOTE | 2016-08-08 22:39 | ED CLINICAL REPORT ---
Clinical Report - Physicians/Mid Levels [facility] [address] [place] [address] 08/08/2016 20:19 Patient: JESSICA CRAVEN Time Seen: 20:44; initial patient contact. Arrived- By ambulance. Historian- patient, EMS personnel and family. HISTORY OF PRESENT ILLNESS Chief Complaint: DECREASED MENTAL STATUS. The patient is described as having decreased responsiveness. (Mrs. Browning found her outside and found her to be hard to arouse. Among her prescribed medicines are fentanyl patches and lorazepam. Her states she also had half a beer around noon. EMS personnel found the patient was sleepy but arousable and would answer questions when aroused). This started today and is still present. (unknown onset.). Patient was last known well (unknown onset of symptoms.). The patient has had alcohol consumption recently but was not found unresponsive. No history of chronic dementia. No recent drug use or medication given prior to arrival. Dextro stick was not low prior to arrival. No weakness or numbness. She has had difficulty walking. Usually is alert and oriented X3 and usually has normal mobility. Similar symptoms previously: None. REVIEW OF SYSTEMS No fever, headache, head injury, chest pain or difficulty breathing. No cough, sore throat, abdominal pain, nausea or diarrhea. No black stools, difficulty with urination or vomiting. The patient has had back pain. It has been similar to previous symptoms. CAVEAT - DECREASED MENTAL STATUS MAKES ROS DIFFICULT DUE TO ams. PAST HISTORY ( PCP: Dr Maloney PAST HISTORY Pancreatitis. Renal Insufficiency. Chest Pain. Bipolar Disorder. Anxiety Reaction. Seizure. Hypertension. Hypothyroidism. Contusion. Alcoholism. Alcohol Intoxication. Narcotic Dependence. Suicidal Ideation. Mental Illness. Depression. UTI - Urinary Tract Infection. Cellulitis. Scoliosis. Seizure Disorder. Back Pain. Hematuria. Hyponatremia. Abdominal Pain. Hyperlipidemia. Atypical Chest Pain. Changed Mental Status. Drug Poisoning. Chronic Back Pain. Headache. LNMP - Last Normal Menstrual Period. Migraine Headache. Lifestyle / Substance Problems. Fibromyalgia. Immunizations. --12:35 Murphy Alonso R.N. ADDITIONAL SURGERIES: Rt knee.). Medications: Nicotine Transdermal 21 mg/24hr, daily . Levothyroxine Sodium Oral 150 mcg, daily. LORazepam Oral (Tablet 1 mg) 1 tablet, 3x a day as needed. Nitroglycerin Translingual (Solution 0.4 mg/spray), PRN. Omeprazole Oral 20 mg, daily. Pravastatin Sodium Oral 20 mg, daily. Promethazine HCl Oral 25 mg, 2x a day as needed. SEROquel Oral (Tablet 100 mg) 1 tablet, 3x a day. Stool Softener Oral. Triamcinolone Acetonide External (Cream 0.1 %), 2x a day as needed. Venlafaxine HCl ER Oral (Tablet Extended Release 24 Hour 75 mg) 1 tablet, TID. Verapamil HCl Oral (Tablet Extended Release 240 mg), daily. Zofran Oral (RX 02/27/13). FentaNYL Transdermal 75 mcg/hr, every 72 hours. Furosemide Oral (Tablet 20 mg) 1 tablet, daily. Imitrex Oral 50 mg, PRN. LevETIRAcetam Oral (Tablet 1000 mg) 1-1/2 tablets, daily (and at hs take 1 tablet ). Allergies: No Known Drug Allergy. SOCIAL HISTORY Current every day smoker. Alcohol use. ADDITIONAL NOTES The nursing notes have been reviewed. PHYSICAL EXAM Vital Signs: 08/08/2016 21:50 BP: 145/83. HR: 80. RR: 20. O2 saturation: 97%. 08/08/2016 21:15 BP: 156/92. HR: 77. RR: 16. O2 saturation: 100%. 08/08/2016 21:00 BP: 142/101. HR: 82. RR: 20. O2 saturation: 100%. 08/08/2016 20:26 BP: 135/96. HR: 94. RR: 18. O2 saturation: 88%. Temp: 98 F. Pain level now: 7/10. Appearance: Odor of alcohol is not present. (Eyes closed and rolled back Snoring respiration. Awakens slightly with loud vocal stimuli). Head: Head atraumatic. Eyes: Pupillary exam. No visual field deficit. No dysconjugate gaze. No nystagmus. ENT: Airway intact. Dry mucous membranes present. Neck: Normal inspection. CVS: Normal heart rate and rhythm. Heart sounds normal. Respiratory: No respiratory distress. Breath sounds normal. Abdomen: Soft and nontender. Skin: Skin warm. Normal skin color. Extremities: Extremities exhibit normal ROM. No lower extremity edema. Neuro: Altered mental status. Eyes open to voice. Best verbal response: disoriented. Best motor response: localizes to pain. No cranial nerve deficit. No motor deficit. No sensory deficit. LABS, X-RAYS, AND EKG Chest X-ray: (PROCEDURE: XR CHEST 1 VIEW INDICATION: ALTERED MENTAL STATUS TECHNIQUE: Portable AP view 09:45 p.m. COMPARISON: Chest x-ray 02/26/2016. FINDINGS: Poor inspiration with mild left basilar atelectasis. Heart and mediastinum are normal. Thorax is normal. IMPRESSION: 1. Poor inspiration with mild left basilar atelectasis Electronically Final signed by:Paolo [place] MD 08/08/2016 10:09:34 PM Technologist: [email or web address]). The X-rays were interpreted by the radiologist and contemporaneously by me. CT Head: (PROCEDURE: CT HEAD WITHOUT CONTRAST INDICATION: MENTAL STATUS CHANGE TECHNIQUE: Noncontrast axial images with sagittal and coronal reformations. COMPARISON: None. FINDINGS: Mild cortical atrophy. Ventricular system, and brain parenchyma are normal. Dystrophic calcifications of the basal ganglia. No evidence of acute intracranial process. Visualized mastoids and sinuses are clear. IMPRESSION: 1. No acute intracranial abnormality 2. Mild atrophy 3. Findings discussed with Dr. Rajan at 10:04 p.m.[facility] Standard Time Electronically Final signed by:Paolo [place] MD 08/08/2016 10:09:23 PM Technologist: LISA). Laboratory Tests: UA-Culture if indicated: (ASIYA: 08/08/2016 21:00) ( MsgRcvd 08/08/2016 21:34) Final results Test Result Flag Units (Reference) URINE COLOR YELLOW URINE APPEARANCE CLEAR URINE GLUCOSE NEGATIVE (NEGATIVE) URINE BILIRUBIN NEGATIVE (NEGATIVE) URINE KETONE NEGATIVE (NEGATIVE) URINE SPECIFIC GRAVITY 1.015 (1.010-1.030) URINE PH 5.5 (5.0-8.0) URINE PROTEIN NEGATIVE (NEGATIVE) URINE UROBILINOGEN 0.2 EU/dL (0.2-1.0) URINE NITRITE NEGATIVE (NEGATIVE) URINE BLOOD NEGATIVE (NEGATIVE) URINE LEUK ESTERASE NEGATIVE (NEGATIVE) URINE RBC NONE SEEN rbc/hpf (0-1) URINE WBC NONE SEEN wbc/hpf (0-1) URINE EPITHELIAL CELLS 0-1 EPI/hpf (0-5) URINE BACTERIA NONE SEEN (NONE SEEN) URINE COMMENT CULT NOT INDICATED URINE CULTURES ARE SET-UP BASED ON THE FOLLOWING CRITERIA:POSITIVE NITRITEPOSITIVE LEUKOCYTE ESTERASEGREATER THAN 10 WHITE BLOOD CELLSMODERATE (2+) OR GREATER BACTERIA CBC w Diff: (ASIYA: 08/08/2016 20:35) ( [facility] 08/08/2016 21:00) Final results Test Result Flag Units (Reference) WHITE BLOOD COUNT 6.1 K/uL (4.5-11.5) RED BLOOD COUNT 3.74 L M/uL (4.00-5.20) HEMOGLOBIN 11.4 L gm/dL (12.0-16.0) HEMATOCRIT 34.5 L % (36.0-46.0) MEAN CELL VOLUME 92 fL (80-100) MEAN CORPUSCULAR HGB 30 pg (26-34) MEAN CORPUSCULAR HGB CONC 33 g/dL (31-37) RED CELL DISTRIBUTION WIDTH 13.8 % (11.6-14.8) PLATELET COUNT 192 K/uL (150-400) NEUTROPHIL % 47.8 L % (50-75) LYMPH % 35.6 % (25-40) MONO % 11.7 % (3-14) EOSINOPHIL % 4.1 H % (0-4) BASOPHIL % 0.8 % (0-2) Ethyl Alcohol: (ASIYA: 08/08/2016 20:23) ( [facility] 08/08/2016 22:17) Final results Test Result Flag Units (Reference) ETHYL ALCOHOL <3 L mg/dL (3-10) Salicylate Level: (ASIYA: 08/08/2016 20:55) ( [facility] 08/08/2016 21:52) Final results Test Result Flag Units (Reference) SALICYLATE 4.6 mg/dL (2.8-20) Acetaminophen Level: (ASIYA: 08/08/2016 20:55) ( [facility] 08/08/2016 21:56) Final results Test Result Flag Units (Reference) ACETAMINOPHEN < 3 L ug/mL (10-30) Urine Drug Screen: (ASIYA: 08/08/2016 21:00) ( [facility] 08/08/2016 21:41) Final results Test Result Flag Units (Reference) AMPHETAMINE/METHAMPHETAMINE NEGATIVE (NEGATIVE) BARBITURATE NEGATIVE (NEGATIVE) BENZODIAZEPINE NEGATIVE (NEGATIVE) CANNABINOID NEGATIVE (NEGATIVE) COCAINE NEGATIVE (NEGATIVE) ECSTASY NEGATIVE (NEGATIVE) METHADONE NEGATIVE (NEGATIVE) OPIATE NEGATIVE (NEGATIVE) The urine drug screen is a qualitative screening test fordrug overdose and abuse. All screen results should beconsidered as presumptive.Drugs screened for are as follows:BenzodiazepinesCocaineAmphetamines/MetamphetaminesTHC (Tetrahydrocannabinol)OpiatesBarbituratesEcstasyMethadonePositive results are unconfirmed. For confirmation, notifythe lab for the specimen to be sent to the reference lab.All confirmations must be performed by a differentmethodology.The ingestion of natural herbal and plant productscontaining Ephedra/Ephedra metabolites can produce in urineone or more substances capable of cross reacting withamphetamine/methamphetamine immunoassays. These testsprovide a preliminary result only. A more specificalternative chemical method must be used to obtain aconfirmed analytical result. CMP: (ASIYA: 08/08/2016 20:35) ( [facility] 08/08/2016 21:19) Final results Test Result Flag Units (Reference) GLUCOSE 118 H mg/dL (70-110) BUN 25 H mg/dL (7-18) CREATININE 1.4 H mg/dL (0.6-1.3) Estimated GFR 40.24 mL/min Estimated GFR- 48.77 mL/min Note: Persistent reduction over 3 months in eGFR<60 mL/min/1.73 m2 defines CKD. Patients with eGFR values>=60 mL/min/1.73 m2 may also have CKD if evidence ofpersistent proteinuria. Additional information may be foundat www.kidney.org. SODIUM 140 mmol/L (136-145) POTASSIUM 4.1 mmol/L (3.5-5.1) CHLORIDE 98 mmol/L (98-107) CARBON DIOXIDE 29 mmol/L (21-32) CALCIUM 8.8 mg/dL (8.5-10.1) TOTAL PROTEIN 7.8 g/dL (6.4-8.2) ALBUMIN 4.3 g/dL (3.3-5.0) BILIRUBIN, TOTAL 0.2 mg/dL (0.0-1.0) ALKALINE PHOSPHATASE 90 U/L (46-116) AST (SGOT) 19 U/L (15-37) ALT (SGPT) 22 U/L (12-78) . PROGRESS AND PROCEDURES Course of Care: 20:49 08/08/16. Much better after naloxone 0.4 mg IV required a second dose of naloxone. 22:01 08/08/16. Following CT required a third dose of naloxone. Eyes were rolled back. Much less responsive. Quickly alert and follows commands after each of the naloxone doses. 22:25 08/08/16. Message left on Dr Maloney's cell phone. No answer so far. Will contact Dr Blanc. 23:08 08/08/16. Dr. Blanc agrees to admit the patient to the ICU. Since she is not desaturating he would rather not have the patient on a naloxone drip. He will reassess her personally when she arrives in the ICU. There are 2 pieces of information which do not fit the diagnosis of opiate overdose. The first is that she is taking only her usual 75 g fentanyl patch she put a new one on today. It's possible she could've ingested a patch or be taking other opiates. The second wrist is normal. His that the urine tox screen is negative for both sent for both opiates and benzodiazepines she has both available to her. Critical care performed (45 minutes). Time is exclusive of separately billable procedures. Time includes: direct patient care, patient reassessment, interpretation of data, review of patient's medical records, medical consultation and documentation of patient care. Disposition orders written. Disposition: Admitted. CLINICAL IMPRESSION ALTERED MENTAL STATUS OPIATE OVERDOSE. (Electronically signed by Kyle Rajan MD 08/08/2016 23:16)
--- NOTE | 2016-08-08 22:39 | ED ORDER SUMMARY ---
..... Patient: JESSICA CRAVEN OrderSheet [facility] VisitID: [id number] [place] [address] 66y, F Registration Date/Time: 08/08/2016 ORDER SHEET Weight: 72.5 kg (estimated) Allergies: No Known Drug Allergy GENERAL ORDERS: POC Glucose (20:47 08/08/2016 Alexx SCHAEFER) (21:01 DDean R.N.) CBC w Diff Urgent (20:47 08/08/2016 Alexx SCHAEFER) (Ack 20:50 [facility] [employer]) (20:52 DDean R.N.) CMP Urgent (20:47 08/08/2016 Alexx SCHAEFER) (Ack 20:50 [facility] [employer]) (20:52 DDean R.N.) UA-Culture if indicated Urgent (20:47 08/08/2016 Alexx SCHAEFER) (Ack 20:50 [facility] [employer]) (21:23 DDean R.N.) Urine Drug Screen Urgent (20:47 08/08/2016 Alexx SCHAEFER) (Ack 20:50 [facility] [employer]) (21:23 DDean R.N.) Acetaminophen Level Urgent (21:18 08/08/2016 Alexx SCHAEFER) (Ack 21:20 [facility] [employer]) (21:23 DDean R.N.) Salicylate Level Urgent (21:18 08/08/2016 Alexx SCHAEFER) (Ack 21:20 [facility] [employer]) (21:23 DDean R.N.) Chest 1V Urgent (21:19 08/08/2016 Alexx SCHAEFER) (Ack 21:21 [facility] [employer]) (21:47 [facility] [employer]) CT Head wo Cont Urgent (21:19 08/08/2016 Alexx SCHAEFER) (Ack 21:21 [facility] [employer]) (21:47 [facility] [employer]) Ethyl Alcohol Urgent (22:01 08/08/2016 Alexx SCHAEFER) (22:04 [facility] [employer]) Urine Drug Screen Urgent (22:39 08/08/2016 [facility] [employer] verbal order read back to Alexx SCHAEFER) (Ack 22:39 [facility] [employer]) (22:39 [facility] [employer]) MEDICATION ORDERS: IV FLUIDS: Naloxone IV 0.4 mg (NOW) (20:46 08/08/2016 Alexx SCHAEFER) (20:53 DDean R.N.) IV Saline Lock (20:47 08/08/2016 Alexx SCHAEFER) (20:53 DDean R.N.) Naloxone IV 0.4 mg (NOW) (21:07 08/08/2016 Alexx SCHAEFER) (21:23 DDean R.N.) Narcan IV 0.4 mg (NOW) (22:02 08/08/2016 DDean R.N. verbal order read back to Alexx SCHAEFER) (22:03 DDean R.N.) IV NS with Normal Saline 1 Liter: initial bolus none -, then 200 mL/hr for X1 (NOW) (run bag #2 at 200/hr) (22:03 08/08/2016 DDean R.N. verbal order read back to Alexx SCHAEFER) (Ack 22:04 DDean R.N.) (22:15 DDean R.N.) ORDER SHEET NOTES: [Electronically signed by Kyle Rajan MD (23:16 08/08/2016)] [Electronically signed by Maria Del Carmen Hutchinson R.N. (05:47 08/09/2016)] [Electronically locked/signed by Maria Del Carmen Hutchinson R.N. (05:47 08/09/2016)]
--- NOTE | 2016-08-08 22:39 | ED ORDER SUMMARY ---
..... Patient: JESSICA CRAVEN OrderSheet [facility] VisitID: [id number] [place] [address] 66y, F Registration Date/Time: 08/08/2016 ORDER SHEET Weight: 72.5 kg (estimated) Allergies: No Known Drug Allergy GENERAL ORDERS: POC Glucose (20:47 08/08/2016 Alexx SCHAEFER) (21:01 DDean R.N.) CBC w Diff Urgent (20:47 08/08/2016 Alexx SCHAEFER) (Ack 20:50 [facility] [employer]) (20:52 DDean R.N.) CMP Urgent (20:47 08/08/2016 Alexx SCHAEFER) (Ack 20:50 [facility] [employer]) (20:52 DDean R.N.) UA-Culture if indicated Urgent (20:47 08/08/2016 Alexx SCHAEFER) (Ack 20:50 [facility] [employer]) (21:23 DDean R.N.) Urine Drug Screen Urgent (20:47 08/08/2016 Alexx SCHAEFER) (Ack 20:50 [facility] [employer]) (21:23 DDean R.N.) Acetaminophen Level Urgent (21:18 08/08/2016 Alexx SCHAEFER) (Ack 21:20 [facility] [employer]) (21:23 DDean R.N.) Salicylate Level Urgent (21:18 08/08/2016 Alexx SCHAEFER) (Ack 21:20 [facility] [employer]) (21:23 DDean R.N.) Chest 1V Urgent (21:19 08/08/2016 Alexx SCHAEFER) (Ack 21:21 [facility] [employer]) (21:47 [facility] [employer]) CT Head wo Cont Urgent (21:19 08/08/2016 Alexx SCHAEFER) (Ack 21:21 [facility] [employer]) (21:47 [facility] [employer]) Ethyl Alcohol Urgent (22:01 08/08/2016 Alexx SCHAEFER) (22:04 [facility] [employer]) Urine Drug Screen Urgent (22:39 08/08/2016 [facility] [employer] verbal order read back to Alexx SCHAEFER) (Ack 22:39 [facility] ER [employer]ic) (22:39 [facility] ER [employer]ic) MEDICATION ORDERS: IV FLUIDS: Naloxone IV 0.4 mg (NOW) (20:46 08/08/2016 Alexx SCHAEFER) (20:53 DDean R.N.) IV Saline Lock (20:47 08/08/2016 Alexx SCHAEFER) (20:53 DDean R.N.) Naloxone IV 0.4 mg (NOW) (21:07 08/08/2016 Alexx SCHAEFER) (21:23 DDean R.N.) Narcan IV 0.4 mg (NOW) (22:02 08/08/2016 DDean R.N. verbal order read back to Alexx SCHAEFER) (22:03 DDean R.N.) IV NS with Normal Saline 1 Liter: initial bolus none -, then 200 mL/hr for X1 (NOW) (run bag #2 at 200/hr) (22:03 08/08/2016 DDean R.N. verbal order read back to Alexx SCHAEFER) (Ack 22:04 DDean R.N.) (22:15 DDean R.N.) ORDER SHEET NOTES: [Electronically signed by Kyle Rajan MD (23:16 08/08/2016)] [Electronically signed by Maria Del Carmen Hutchinson R.N. (05:47 08/09/2016)] [Electronically locked/signed by Maria Del Carmen Hutchinson R.N. (05:47 08/09/2016)]
--- NOTE | 2016-08-08 22:39 | ED NURSING NOTES ---
Clinical Report - Nurses Located Within [facility] [address] [place] [address] 08/08/2016 20:19 Patient: JESSICA CRAVEN TRIAGE Triage time 2019. Acuity: LEVEL 3. Chief Complaint: (pt in by EMS after called concerned that pt may be having a stroke. electrician technician are equal and strong, pt very sleepy, but just got a new fentanyl patch today - pt goes to slelep when not stimulated). NIC COMA SCORE: Ransom Coma Scale: 14- eyes open spontaneously (4); best verbal response- disoriented (4); best motor response- obeys commands (6). --20:33 Traci Allen R.N. 20:26 08/08/16. BP: 135/96. HR: 94. RR: 18. O2 saturation: 88% on room air. Temp: 98 F. Pain level now: 7/10. Additional comments: placed on 2 L NC . --20:33 Traci Allen R.N. Weight: 72.5 kg estimated. Height/Length: 69 inches Per Patient. BMI: 23.6. --20:28 Traci Allen R.N. Medications FentaNYL Transdermal 75 mcg/hr, every 72 hours. Furosemide Oral (Tablet 20 mg) 1 tablet, daily. Imitrex Oral 50 mg, PRN. LevETIRAcetam Oral (Tablet 1000 mg) 1-1/2 tablets, daily (and at hs take 1 tablet ). --20:39 Traci Allen R.N. Levothyroxine Sodium Oral 150 mcg, daily. LORazepam Oral (Tablet 1 mg) 1 tablet, 3x a day as needed. Nitroglycerin Translingual (Solution 0.4 mg/spray), PRN. Omeprazole Oral 20 mg, daily. Pravastatin Sodium Oral 20 mg, daily. Promethazine HCl Oral 25 mg, 2x a day as needed. SEROquel Oral (Tablet 100 mg) 1 tablet, 3x a day. Stool Softener Oral. Triamcinolone Acetonide External (Cream 0.1 %), 2x a day as needed. Venlafaxine HCl ER Oral (Tablet Extended Release 24 Hour 75 mg) 1 tablet, TID. Verapamil HCl Oral (Tablet Extended Release 240 mg), daily. Zofran Oral (RX 02/27/13). --20:39 Traci Allen R.N. Nicotine Transdermal 21 mg/24hr, daily . --20:39 Traci Allen R.N. Allergies No Known Drug Allergy. --20:32 Traci Allen R.N. History Arrived by EMS. Historian: patient. This started today. SOCIAL HX: Heavy tobacco smoker (cigarette)- 1-2 packs per day. Alcohol use. --20:33 Traci Allen R.N. PROBLEMS: Pancreatitis. Renal Insufficiency. Chest Pain. Bipolar Disorder. Anxiety Reaction. Hypertension. Hypothyroidism. Alcoholism. Narcotic Dependence. Suicidal Ideation. Mental Illness. Depression. UTI - Urinary Tract Infection. Cellulitis. Scoliosis. Seizure Disorder. Hematuria. Hyponatremia. Hyperlipidemia. Chronic Back Pain. Migraine Headache. Fibromyalgia. --20:30 Traci Allen R.N. ADDITIONAL SURGERIES: Rt knee. --20:30 Traci Allen R.N. Interventions ID band on patient. To treatment room. --20:33 Traci Allen R.N. PHYSICAL ASSESSMENT 20:20. To room via stretcher. Patient gowned. GENERAL / NEURO / PSYCH: Alert. Decreased awareness. RESPIRATORY: Respirations not labored. CVS: Capillary refill less than 2 seconds. GI / : Abdomen soft. SKIN: Skin is warm and dry. --20:35 Traci Allen R.N. NURSING PROGRESS NOTES 20:20. Oxygen administered. Monitoring of patient in place. Patient gowned. Head of bed elevated. Reassurance given. Patient identifiers checked. Call light placed in reach. Side rails up. Bed placed in lowest position. Patient ready for evaluation- chart flagged. --20:34 Traci Allen R.N. 20:38 08/08/2016 Site #1 started via IV in the left antecubital space with an 20g angiocath, with aseptic technique and good blood return; one attempt. Blood drawn: rainbow set. Labeled in the presence of the patient and sent to the lab. Saline lock flushed with 10 mL saline (IV start by [facility]). --20:53 Traci Allen R.N. 20:40 08/08/2016 Naloxone IVP 0.4 mg given over 1 minute(s) via site #1. IV patency established. IV site checked: no pain, redness, or swelling. IV flushed thoroughly pre- and post-medication administration. IVP given by RN. --20:53 Traci Allen R.N. 20:38 IV started and blood draw, sent to lab. --20:54 Traci Allen R.N. 20:40 Narcan given and Fentanuyl patch removed. pt open eyes more easily, and resp not as noisy. --20:55 Traci Allen R.N. 20:59 08/08/16. ( [id number]). --20:59 Traci Allen R.N. 21:00 08/08/16. BP: 142/101. HR: 82. RR: 20. O2 saturation: 100%. Temp: deferred. Pain level now unable to obtain. Additional comments: pt sleeping. --21:00 Traci Allen R.N. 21:05. 10 fr in/out catheterization. During procedure hand hygiene observed and sterile equipment and aseptic technique used. Return of less than 50 mL yellow-colored clear urine. She tolerated procedure well. Patient ID band checked for patient name and birthdate: family confirmed. Catheterized urine collected with return of yellow-colored clear urine; sample sent to lab for urinalysis and culture. Specimen labeled in the presence of the patient (2 staff assist). --21:21 Traci Allen R.N. 21:15 08/08/16. BP: 156/92. HR: 77. RR: 16. O2 saturation: 100%. Temp: deferred. Pain level now unable to obtain. --21:22 Traci Allen R.N. 21:10 08/08/2016 Naloxone IVP 0.4 mg given over 1 minute(s) via site #1. IV patency established. IV site checked: no pain, redness, or swelling. IV flushed thoroughly pre- and post-medication administration. IVP given by RN. --21:23 Traci Allen R.N. 21:31 08/08/16. Patient transported to radiology and CT by stretcher with tech. --21:31 Traci Allen R.N. 21:45. Patient returned from radiology and CT by stretcher. --21:56 Traci Allen R.N. 21:50 08/08/16. BP: 145/83. HR: 80. RR: 20. O2 saturation: 97% on nasal cannula at 2 liters/minute. Temp: deferred. Pain level now unable to obtain. Additional comments: pt sleeping with snoring respirations. --21:57 Traci Allen R.N. 22:00 ERMD at bedside to examine pt. 3rd dose of Narcan given. --22:02 Traci Allen R.N. 22:00 08/08/2016 Narcan (Naloxone HCl) IVP 0.4 mg given over 1 minute(s) via site #1. IV patency established. IV site checked: no pain, redness, or swelling. IV flushed thoroughly pre- and post-medication administration. IVP given by RN. --22:03 Traci Allen R.N. 22:15 08/08/2016 Started bag #2 1000 mL IV Fluids IV NS (Saline); at 200 mL/hr over 5 hour(s) via site #1 via IV pump. IV patency established. IV site checked: no pain, redness, or swelling. IV flushed thoroughly pre- and post-medication administration. --22:15 Traci Allen R.N. 22:15 08/08/2016 IV Saline Lock Drip IV Discontinued: bag #1 infused. Total amount infused: 1000 mL. IV patency established. IV site checked: no pain, redness, or swelling. IV flushed thoroughly. --22:16 Traci Allen R.N. call placed to Dr. Marlow. --22:16 Traci Allen R.N. 22:21 08/08/16. ( Pts given Dr. Neri form to fill out). --22:21 Traci Allen R.N. 22:22 08/08/16. Care transferred and report given (Maria Del Carmen Lezama, EDRN). --22:22 Traci Allen R.N. 22:22. Care transferred and report received (from Traci HOLLIS). --22:52 Maria Del Carmen Hutchinson R.N. 8 fr in/out catheterization. Reason for indwelling catheter: patient's decreased level of consciousness. During procedure hand hygiene observed and sterile equipment and aseptic technique used. Return of 100 mL yellow-colored clear urine; odor is normal. She tolerated procedure well. ( Patient ambulated to bedside commode after in and out catheter. Patient is talking in full sentences, is oriented x 4. She reports she is not aware what happened or how long she has been here.). --22:54 Maria Del Carmen Hutchinson R.N. DISPOSITION / DISCHARGE 23:47 08/08/16. Admitted to the Critical Care Unit. Report was given to a nurse via a phone call. Report included patient's care, treatment, medications, reviewed medication reconcilliation, and condition (including any recent changes or anticipated changes). All questions were answered. Report was acknowledged and care was transferred. Bed obtained and ready. --23:47 Maria Del Carmen Hutchinson R.N. 00:00 08/09/16. --00:00 Maria Del Carmen Hutchinson R.N. 23:58 08/08/16. BP: 124/80. HR: 77. RR: 15. O2 saturation: 100%. Temp: deferred. Pain level now: 0/10. --00:00 Maria Del Carmen Hutchinson R.N. late entry - 23:59. Transported via stretcher by nurse with monitor, IV and O2 ((iv saline locked)). --05:05 Maria Del Carmen Hutchinson R.N. Locked/Released at 08/09/2016 5:47 by Maria Del Carmen Hutchinson R.N.
--- NOTE | 2016-08-08 23:37 | History & Physical Report ---
Information Source Information Source: Self Reliability: Good History Chief Complaint Altered mental status History of Present Illness Patient is a 66-year-old female with a past medical history of seizure disorder, hypertension, depression, and hypothyroidism that is presenting with altered mental status and increased somnolence. Patient is a 66-year-old female that has been in her regular state of health past couple of months. Patient had no problems whatsoever and did not have any sort of sign of illness recently. However today patient was working outside in the yard she took all her medications as prescribed to her and put on new fentanyl patch on this morning. Patient claims that while working outside her fentanyl patch was exposed to a fair amount of sun additionally she was working to the point of sweating therefore she feels that the fentanyl patch may have been exposed to fluid and high sunlight. Patient shortly after became very lethargic and drowsy. The found her collapsed in a chair barely responsive. He became worried that the patient was having a stroke and called EMS. Patient arrived to the hospital was very sedated and lethargic and not responding appropriately. Patient was given 2 doses of Narcan to which she woke up immediately and was completely responsive. Patient additionally did not have any evidence of infectious process on blood work nor did she have any evidence of intracranial abnormality on CT scan. Currently patient is talking appropriately and responding to questions appropriately. Patient is otherwise hemodynamically stable Patient History 1. Altered mental state 2. Opiate overdose 3. Seizure disorder 4. Cardiac arrhythmia, unspecified 5. Hypothyroid 6. 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 She is currently trying to use nicotine patches to help her Patient drinks very rarely as per the patient. However she has a history of alcohol abuse for which she was admitted. Patient has no history of illicit drug use She currently lives at home with her and is independent in all her ADLs Family History Family history was reviewed; no changes noted. Medications and Allergies Medications Home medications Fentanyl transdermal patch 75 g every 72 hours Furosemide 20 mg daily Imitrex oral 50 mg when necessary Keppra 1000 mg daily at bedtime Synthroid 150 g daily Lorazepam 1 mg 3 times a day Omeprazole 20 mg daily Pravastatin 20 mg daily Promethazine 25 mg twice a day as needed Cervical 100 mg 3 times a day Triamcinolone 0.1% twice a day as needed Venlafaxine ER 75 mg 3 times a day Verapamil 240 mg daily Zofran oral as needed Current Medications Sig/Eugene Start time Last Medication Dose Route Stop Time Status Admin Venlafaxine HCl 75 MG QHS 08/08 2345 AC 08/09 PO 54 Levetiracetam 1,000 MG BID 08/08 2334 AC 08/09 PO 54 Sodium Chloride 1,000 ML ASDIRECTED 08/08 2330 AC IV Allergies Coded Allergies: NKA (06/21/13) Reconcile Medications Scheduled Medications Cholecalciferol (Vitamin D-3 1000 Units Tablet) 1,000 UNIT TAB 5,000 UNITS PO DAILY (Reported) Fentanyl (Duragesic 12 Mcg/Hr Patch) 12 MCG/HR DIS 75 MCG TOP Q72H (Reported) Furosemide (Furosemide 20 MG) 20 MG TAB 40 MG PO DAILY (Reported) Levetiracetam (Keppra 500 MG) 500 MG TAB 1,000 MG PO BID (Reported) Levothyroxine Sodium (Levothyroxine Sodium 50 Mcg) 50 MCG TAB 150 MCG PO DAILY (Reported) Nicotine (Nicotine Transdermal Syst 21 MG) 21 MG/24 H DIS 21 MG TOP DAILY ( Reported) Omeprazole (Prilosec) 20 MG CAP 20 MG PO HS (Reported) Pravastatin Sodium (Pravachol) 20 MG TAB 20 MG PO HS (Reported) Quetiapine Fumerate (SEROquel) 100 MG TAB 100 MG PO TID (Reported) Venlafaxine Hydrochloride (Effexor XR) 37.5 MG CAP 75 MG PO HS (Reported) Venlafaxine Hydrochloride (Effexor XR) 37.5 MG CAP 225 MG PO EVERY MORNING ( Reported) Verapamil HCl (Verapamil HCl Sr) 240 MG TAB 240 MG PO DAILY (Reported) Scheduled PRN Medications Lorazepam (Lorazepam 1 MG) 1 MG TAB 1 MG PO QID PRN FOR ANXIETY (Reported) Nitroglycerin (Nitrostat 0.4 MG) 0.4 MG SUB 0.4 MG SL Q5MIN X 3 PRN FOR CHEST PAIN (Reported) Promethazine HCl (Phenergan Tablet) 25 MG TAB 25 MG PO BID PRN FOR NAUSEA/ VOMITING (Reported) Sennosides-Docusate Sodium (Stool Softener Laxative) (Unknown Strength) TAB ( Unknown Dose) PO PRN FOR CONSTIPATION (Reported) Sumatriptan Succinate (Imitrex) 50 MG TAB 50 MG PO PRN Migraine (Reported) Triamcinolone Acetonide (Topic (Triamcinolone Acetonide) 0.1 % CRE 1 TOP BID PRN FOR RASH (Reported) Discontinued Medications Promethazine HCl (Phenergan Tablet) 25 MG TAB 25 MG PO BID PRN NAUSEA ( Reported) Discontinued reason: Duplicate Entry Venlafaxine Hydrochloride (Venlafaxine HCl ER) 37.5 MG CAP 75 MG PO TID ( Reported) Discontinued reason: Duplicate Entry Review of Systems Constitutional Weakness, Malaise. Denies: Fever, Chills, Sweats, Other. Eyes Denies: Pain, Vision Change, Conjunctival Inflammation, Eyelid Inflammation, Redness, Other. ENT Denies: Ear Pain, Ear Discharge, Nose Pain, Nasal Discharge, Nasal Congestion, Mouth Pain, Mouth Swelling, Throat Pain, Throat Swelling, Other. Respiratory Denies: Cough, Dry, SOB w/exertion, Wheezing, Hemoptysis, Pleuritic Pain, Sputum , Other. Cardiovascular Denies: Chest Pain, Palpitations, Orthopnea, PND, Edema, Light-headedness, Other. Gastrointestinal Denies: Nausea, Vomiting, Abdominal Pain, Diarrhea, Constipation, Melena, Hematochezia, Other. Genitourinary Denies: Dysuria, Frequency, Incontinence, Hematuria, Retention, Other. Skin Denies: Rash, Lesions, Jaundice, Bruising, Other. Neurological Denies: Weakness, Numbness, Incoordination, Change in speech, Confusion, Seizures, Other. Physical Exam Vital Signs / I&Os Vital Signs Date Time Temp Pulse Resp B/P Pulse O2 O2 Flow FiO2 Ox Delivery Rate 08/09 0731 97.9 93 136/90 97 08/09 0725 17 Room Air 2.0 08/09 0435 97.9 77 18 141/87 100 Nasal 2.0 Cannula 08/09 0122 2.0 08/09 0019 98.4 77 16 134/84 99 Nasal 2.0 Cannula General Appearance Alert, Oriented X3, No acute distress HEENT PERRLA, Moist mucous membranes Lungs Clear to auscultation, Normal air movement Neck No JVD, No masses, No lymphadenopathy, 2+ carotid pulse wo bruit Cardiovascular Regular rate and rhythm, Normal S1 and S2, No murmurs, gallops, rubs Abdomen Normal bowel sounds, Soft, No tenderness Extremities No clubbing, No edema, Normal pulses, No tenderness Neurological Normal gait, Normal speech, Normal tone, Sensation intact, Cranial nerves intact, Strength 5/5 x4 ext's, No lateralizing signs Psych/Mental Status Mood normal LAB Results Laboratory Tests 08/08 Chemistry Plasma Sodium (136 - 145 mmol/L) 140 Plasma Potassium (3.5 - 5.1 mmol/L) 4.1 Plasma Chloride (98 - 107 mmol/L) 98 CO2 (Enzymatic) (21 - 32 mmol/L) 29 BUN (7 - 18 mg/dL) 25 Creatinine (0.6 - 1.3 mg/dL) 1.4 Est GFR ( Amer) (mL/min) 48.77 Est GFR (Non-Af Amer) (mL/min) 40.24 Glucose (70 - 110 mg/dL) 118 Plasma Calcium (8.5 - 10.1 mg/dL) 8.8 Total Bilirubin (0.0 - 1.0 mg/dL) 0.2 AST (15 - 37 U/L) 19 ALT (12 - 78 U/L) 22 Alkaline Phosphatase (46 - 116 U/L) 90 Total Protein (6.4 - 8.2 g/dL) 7.8 Albumin (3.3 - 5.0 g/dL) 4.3 Hematology WBC (4.5 - 11.5 K/uL) 6.1 RBC (4.00 - 5.20 M/uL) 3.74 Hgb (12.0 - 16.0 gm/dL) 11.4 Hct (36.0 - 46.0 %) 34.5 MCV (80 - 100 fL) 92 MCH (26 - 34 pg) 30 RDW (11.6 - 14.8 %) 13.8 Neut % (Auto) (50 - 75 %) 47.8 Lymph % (Auto) (25 - 40 %) 35.6 Throckmorton % (Auto) (3 - 14 %) 11.7 Eos % (Auto) (0 - 4 %) 4.1 Baso % (Auto) (0 - 2 %) 0.8 Plt Count, EDTA (150 - 400 K/uL) 192 PUBS MCHC (31 - 37 g/dL) 33 Toxicology Salicylates (2.8 - 20 mg/dL) 4.6 Acetaminophen (10 - 30 ug/mL) < 3 Plasma/Serum Ethyl Alc (3 - 10 mg/dL) <3 08/08 08/08 08/09 2100 [id number] Chemistry Plasma Sodium (136 - 145 mmol/L) 144 Plasma Potassium (3.5 - 5.1 mmol/L) 4.3 Plasma Chloride (98 - 107 mmol/L) 104 CO2 (Enzymatic) (21 - 32 mmol/L) 29 BUN (7 - 18 mg/dL) 23 Creatinine (0.6 - 1.3 mg/dL) 1.1 Est GFR ( Amer) (mL/min) >60 Est GFR (Non-Af Amer) (mL/min) 53.15 Glucose (70 - 110 mg/dL) 91 Plasma Calcium (8.5 - 10.1 mg/dL) 8.2 Total Bilirubin (0.0 - 1.0 mg/dL) 0.4 AST (15 - 37 U/L) 22 ALT (12 - 78 U/L) 20 Alkaline Phosphatase (46 - 116 U/L) 87 Total Protein (6.4 - 8.2 g/dL) 7.2 Albumin (3.3 - 5.0 g/dL) 4.0 Hematology WBC (4.5 - 11.5 K/uL) 9.1 RBC (4.00 - 5.20 M/uL) 4.33 Hgb (12.0 - 16.0 gm/dL) 13.2 Hct (36.0 - 46.0 %) 40.5 MCV (80 - 100 fL) 94 MCH (26 - 34 pg) 30 RDW (11.6 - 14.8 %) 14.7 Gran % (53 - 90) 71.7 Lymph % (Auto) (25 - 40 %) 24.2 Throckmorton % (Auto) (3 - 14 %) 4.1 Plt Count, EDTA (150 - 400 K/uL) 163 PUBS MCHC (31 - 37 g/dL) 33 Toxicology Urine Opiates Screen (NEGATIVE) NEGATIVE NEGATIVE Urine Methadone Screen (NEGATIVE) NEGATIVE NEGATIVE Ur Barbiturates Screen (NEGATIVE) NEGATIVE NEGATIVE U Amphetamin/Meth Scrn (NEGATIVE) NEGATIVE NEGATIVE MDMA (Ecstasy) Screen (NEGATIVE) NEGATIVE NEGATIVE U Benzodiazepines Scrn (NEGATIVE) NEGATIVE NEGATIVE Urine Cocaine Screen (NEGATIVE) NEGATIVE NEGATIVE U Cannabinoids Screen (NEGATIVE) NEGATIVE NEGATIVE Urines Urine Color YELLOW Urine Appearance CLEAR Urine pH (5.0 - 8.0) 5.5 Ur Specific [place] (1.010 - 1.030) 1.015 Urine Protein (NEGATIVE) NEGATIVE Urine Ketones (NEGATIVE) NEGATIVE Urine Blood (NEGATIVE) NEGATIVE Urine Nitrite (NEGATIVE) NEGATIVE Urine Bilirubin (NEGATIVE) NEGATIVE Urine Urobilinogen (0.2 - 1.0 EU/dL) 0.2 Ur Leukocyte Esterase (NEGATIVE) NEGATIVE Urine RBC (0 - 1 rbc/hpf) NONE SEEN Urine WBC (0 - 1 wbc/hpf) NONE SEEN Ur Epithelial Cells (0 - 5 EPI/hpf) 0-1 Urine Bacteria (NONE SEEN) NONE SEEN Urine Glucose (NEGATIVE) NEGATIVE Urine Comment CULT NOT INDICATED Microbiology Date/Time Procedure - Status Source Growth 08/09 0030 MRSA Screen - RECD NASAL Assessment and Plan Problem List 1. Altered mental state Plan Patient is presenting with altered mental status that was responsive to opiate reversal agents Most likely the altered mental status is due to increased secretion of the fentanyl patch Patient is currently mentating normally without any signs of increased lethargy Given that this is most likely due to the fentanyl patch will monitor the patient briefly and if patient remains within normal limits we'll discharge later today We'll monitor the patient for any sort of desaturation or worsening mental status 2. Opiate overdose Plan Patient is prescribed fentanyl 75 g transdermal patch Patient's patch was exposed to sunlight as well as sweats which may have increased the increased distribution of opiate medication Patient was very responsive to Narcan and she is currently mentating normally We'll hold off on sedating agents for the time being 3. Seizure disorder Plan Patient has an established history of seizure disorder We'll continue with Keppra 1000 mg daily Patient's altered mental status is very unlikely due to seizure activity given the lack of a postictal period and responsive to nystatin Narcan 4. Cardiac arrhythmia, unspecified Plan We'll continue with verapamil 240 mg daily We'll continue with furosemide 20 mg daily 5. Hypothyroid Plan We will continue with Synthroid 150 g daily No evidence of [id number] symptoms 6. Bipolar 2 disorder Plan We will continue with the lorazepam 3 times a day if patient's mental status improves We'll continue with Tanya Carter Dr. milligrams 3 times a day We'll continue with the venlafaxine 75 mg 1 tab 3 times a day
[2016-08-09 00:19] VITALS: BP 134/84
[2016-08-09] MEDS ORDERED: EFFEXOR XR37.5 MG PO ×2 (01:28→01:29)
[2016-08-09] MEDS ORDERED: NICOTINE T21 MG/24 H TOP (01:30)
[2016-08-09] MEDS ORDERED: STOOL SOFTENER1 TA1 PO (01:31)
[2016-08-09] MEDS ORDERED: IMITREX50 MG PO (01:33)
[2016-08-09] MEDS ORDERED: TRIAMCINOLONE A0.11 TOP (01:36)
[2016-08-09] MEDS ORDERED: NITROSTAT0.4 MG SL (01:39)
[2016-08-09 04:35] VITALS: BP 141/87
--- NOTE | 2016-08-09 05:48 | ED MED RECONCILIATION SUMMARY ---
Patient: JESSICA CRAVEN Medication Reconciliation Report [facility] VisitID: [id number] [address] [place] [address] 66y, F Registration Date/Time: 08/08/2016 Weight: 72.5 kg Height/Length: 69 in. BMI: 23.6 ALLERGIES: No Known Drug Allergy The patient's Home Medications are listed below: THE FOLLOWING MEDICATIONS NEED TO BE RECONCILED: FentaNYL Transdermal 75 mcg/hr, every 72 hours Furosemide Oral (20 mg) 1 tablet, daily Imitrex Oral 50 mg, PRN LevETIRAcetam Oral (1000 mg) 1-1/2 tablets, daily, and at hs take 1 tablet Levothyroxine Sodium Oral 150 mcg, daily LORazepam Oral (1 mg) 1 tablet, 3x a day Nicotine Transdermal 21 mg/24hr, daily Nitroglycerin Translingual (0.4 mg/spray), PRN Omeprazole Oral 20 mg, daily Pravastatin Sodium Oral 20 mg, daily Promethazine HCl Oral 25 mg, 2x a day SEROquel Oral (100 mg) 1 tablet, 3x a day Stool Softener Oral Triamcinolone Acetonide External (0.1 %), 2x a day Venlafaxine HCl ER Oral (75 mg) 1 tablet, TID Verapamil HCl Oral (240 mg), daily Zofran Oral, RX 02/27/13 The source(s) of the original Home Medication information: Not obtained. The following Medications were given to the patient in the Emergency Department: Naloxone [IVP] IVP 0.4 mg, administered: 08/08/2016 8:40:00 PM Naloxone [IVP] IVP 0.4 mg, administered: 08/08/2016 9:10:00 PM Narcan [IVP] IVP 0.4 mg, administered: 08/08/2016 10:00:00 PM IV NS IV Fluids bolus 0, then 200 mL/hr, administered: 08/08/2016 10:15:00 PM The following Medications were prescribed to the patient: None.
--- NOTE | 2016-08-09 05:48 | ED MED RECONCILIATION SUMMARY ---
Patient: JESSICA CRAVEN Medication Reconciliation Report [facility] VisitID: [id number] [address] [place] [address] 66y, F Registration Date/Time: 08/08/2016 Weight: 72.5 kg Height/Length: 69 in. BMI: 23.6 ALLERGIES: No Known Drug Allergy The patient's Home Medications are listed below: THE FOLLOWING MEDICATIONS NEED TO BE RECONCILED: FentaNYL Transdermal 75 mcg/hr, every 72 hours Furosemide Oral (20 mg) 1 tablet, daily Imitrex Oral 50 mg, PRN LevETIRAcetam Oral (1000 mg) 1-1/2 tablets, daily, and at hs take 1 tablet Levothyroxine Sodium Oral 150 mcg, daily LORazepam Oral (1 mg) 1 tablet, 3x a day Nicotine Transdermal 21 mg/24hr, daily Nitroglycerin Translingual (0.4 mg/spray), PRN Omeprazole Oral 20 mg, daily Pravastatin Sodium Oral 20 mg, daily Promethazine HCl Oral 25 mg, 2x a day SEROquel Oral (100 mg) 1 tablet, 3x a day Stool Softener Oral Triamcinolone Acetonide External (0.1 %), 2x a day Venlafaxine HCl ER Oral (75 mg) 1 tablet, TID Verapamil HCl Oral (240 mg), daily Zofran Oral, RX 02/27/13 The source(s) of the original Home Medication information: Not obtained. The following Medications were given to the patient in the Emergency Department: Naloxone [IVP] IVP 0.4 mg, administered: 08/08/2016 8:40:00 PM Naloxone [IVP] IVP 0.4 mg, administered: 08/08/2016 9:10:00 PM Narcan [IVP] IVP 0.4 mg, administered: 08/08/2016 10:00:00 PM IV NS IV Fluids bolus 0, then 200 mL/hr, administered: 08/08/2016 10:15:00 PM The following Medications were prescribed to the patient: None.
--- NOTE | 2016-08-09 05:48 | ED MAR SUMMARY ---
..... Medication Administration Record [facility] [address] [place] [address] Patient: JESSICA CRAVEN Visit ID: [id number] 66y, F Weight: 72.5 kg Height/Length: 69 in BMI: 23.6 ALLERGIES: No Known Drug Allergy Given 20:40 08/08/2016 Traci Allen R.N. Medication Administered: NALOXONE [IVP], Dose: 0.4 mg IVP over 1 minute(s), Site: #1 left AC. Medication Ordered: Naloxone IV 0.4 mg (NOW). Given 21:10 08/08/2016 Traci Allen R.N. Medication Administered: NALOXONE [IVP], Dose: 0.4 mg IVP over 1 minute(s), Site: #1 left AC. Medication Ordered: Naloxone IV 0.4 mg (NOW). Given 22:00 08/08/2016 Traci Allen R.N. Medication Administered: NARCAN [IVP] (NALOXONE HCL), Dose: 0.4 mg IVP over 1 minute(s), Site: #1 left AC. Medication Ordered: Narcan IV 0.4 mg (NOW). Start 22:15 08/08/2016 Traci Allen R.N. Medication Administered: IV NS (SALINE), Dose: IV Fluids over 5 hour(s), Rate: 200 mL/hr, Dispensed: 1000 mL bag, Site: #1 left AC. Medication Ordered: IV NS with Normal Saline 1 Liter: initial bolus none -, then 200 mL/hr for X1 (NOW) (run bag #2 at 200/hr).
--- NOTE | 2016-08-09 05:48 | ED DISCHARGE INSTRUCTIONS ---
Patient: JESSICA CRAVEN General Instructions [facility] VisitID: [id number] [address] [place] [address] 66y, F Registration Date/Time: 08/08/2016 ALTERED MENTAL STATUS OPIATE OVERDOSE. (Electronically signed by Kyle Rajan MD 08/08/2016 23:16)
--- NOTE | 2016-08-09 05:48 | ED MAR SUMMARY ---
..... Medication Administration Record [facility] [address] [place] [address] Patient: JESSICA CRAVEN Visit ID: [id number] 66y, F Weight: 72.5 kg Height/Length: 69 in BMI: 23.6 ALLERGIES: No Known Drug Allergy Given 20:40 08/08/2016 Traci Allen R.N. Medication Administered: NALOXONE [IVP], Dose: 0.4 mg IVP over 1 minute(s), Site: #1 left AC. Medication Ordered: Naloxone IV 0.4 mg (NOW). Given 21:10 08/08/2016 Traci Allen R.N. Medication Administered: NALOXONE [IVP], Dose: 0.4 mg IVP over 1 minute(s), Site: #1 left AC. Medication Ordered: Naloxone IV 0.4 mg (NOW). Given 22:00 08/08/2016 Traci Allen R.N. Medication Administered: NARCAN [IVP] (NALOXONE HCL), Dose: 0.4 mg IVP over 1 minute(s), Site: #1 left AC. Medication Ordered: Narcan IV 0.4 mg (NOW). Start 22:15 08/08/2016 Traci Allen R.N. Medication Administered: IV NS (SALINE), Dose: IV Fluids over 5 hour(s), Rate: 200 mL/hr, Dispensed: 1000 mL bag, Site: #1 left AC. Medication Ordered: IV NS with Normal Saline 1 Liter: initial bolus none -, then 200 mL/hr for X1 (NOW) (run bag #2 at 200/hr).
--- NOTE | 2016-08-09 05:48 | ED DISCHARGE INSTRUCTIONS ---
Patient: JESSICA CRAVEN General Instructions [facility] VisitID: [id number] [address] [place] [address] 66y, F Registration Date/Time: 08/08/2016 ALTERED MENTAL STATUS OPIATE OVERDOSE. (Electronically signed by Kyle Rajan MD 08/08/2016 23:16)
[2016-08-09 07:31] VITALS: BP 136/90
[2016-08-09 11:15] VITALS: BP 131/81
--- NOTE | 2016-08-09 12:49 | Provider's Discharge Care Plan ---
Problem, Goal, Plan Problem List 1. Opiate overdose Instructions: - do not expose fentanyl patch to sun or heat 2. Altered mental state Instructions: - secondary to opioid overuse due to heat exposure of fentanyl patch - no further altered mental status noted 3. Seizure disorder Instructions: Take meds as directed 4. Cardiac arrhythmia, unspecified Instructions: Take meds as directed
== END 2016-08-09 13:39 | disposition home or self-care (01) ==
LOC: ED SRH 20:18 → TRANS SRH 22:57 → CC SRH 08-09 00:42
PROVIDERS: ADMIT Internal Medicine
DX: T40.4X1A Poisoning by other synthetic narcotics, accidental (unintentional), initial encounter (principal); R40.0 Somnolence; Z91.14 Patient's other noncompliance with medication regimen; M79.7 Fibromyalgia; I49.9 Cardiac arrhythmia, unspecified; E03.9 Hypothyroidism, unspecified; G40.909 Epilepsy, unspecified, not intractable, without status epilepticus; I10 Essential (primary) hypertension; F31.81 Bipolar II disorder; F17.210 Nicotine dependence, cigarettes, uncomplicated
CPT/HCPCS: 81460; 90004; 90074; 90100; 92010; 92132; 92760; 92761; 92762; 92763; 92764; 92765; 92766; 92767; 92780; 95059; 97000